=== PATIENT | male | born 1945 | race American Indian/Alaskan Native ===

== ENCOUNTER 2022-02-10 08:11 | Inpatient (IN) | payer MEDICARE ==
--- NOTE | 2022-02-10 08:41 | Emergency Department Report ---
Blank Doc - Documentation Documentation: 76-year-old male that presents with bilateral leg swelling, chest tightness and shortness of breath. 1- This is a initial triage assessment/medical screening only. Full assessment and work-up will be completed once the patient is in proper hospital gown, ED bed and in a private room setting. This initial assessment/diagnostic orders/clinical plan/ treatment(s) is/are subject to change based on pt's health status, clinical progression and re-assessment by fellow clinical providers in the ED. Further treatment and workup at subsequent clinical providers discretion. Patient/guardians urged not to elope from ED as their condition may be serious if not clinically assessed and managed. 2-cardiac work-up 3-EKG The patient was evaluated in the emergency department for symptoms described in the history of present illness. He/she was evaluated in the context of the [facility] COVID-19 pandemic, which necessitated consideration that the patient might be at risk for infection with the virus that causes COVID-19. Institutional protocols and algorithms that pertain to the evaluation of patients at risk for COVID-19 are in a state of rapid change based on information released by regulatory bodies including the CDC and federal and state organizations. These policies and algorithms were followed during the patient's care in the emergency department. Please note that these policies, procedures and recommendations changed on a rapid basis.
--- NOTE | 2022-02-10 09:15 | XRay Report ---
CHEST 2 VIEWS INDICATION / CLINICAL INFORMATION: Chest Pain. FINDINGS: SUPPORT DEVICES: None. HEART / MEDIASTINUM: No significant abnormality. LUNGS / PLEURA: No significant pulmonary or pleural abnormality. No pneumothorax. ADDITIONAL FINDINGS: No significant additional findings. IMPRESSION: 1. No acute findings. Signer Name: Derrick Elliott MD Signed: 02/10/2022 9:11 AM Workstation Name: [id number]
[2022-02-10 09:59] LABS: Basophils # (Auto) 0.1 K/mm3 (0.0-0.1); Basophils % (Auto) 0.8 % (0.0-1.8); Eosinophils # (Auto) 0.3 K/mm3 (0.0-0.4); Eosinophils % (Auto) 5.1 % (0.0-4.3); Hematocrit 39.8 % (35.5-45.6); Hemoglobin 13.3 gm/dl (11.8-15.2); Lymphocytes # (Auto) 0.8 K/mm3 (1.2-5.4); Lymphocytes % (Auto) 13.1 % (13.4-35.0); Mean Corpuscular HGB Conc 33 % (32-34); Mean Corpuscular Volume 88 fl (84-94); Monocytes # (Auto) 0.7 K/mm3 (0.0-0.8); Monocytes % (Auto) 11.3 % (0.0-7.3); Platelet Count 334 K/mm3 (140-440); Red Blood Count 4.51 M/mm3 (3.65-5.03); Red Cell Distribution Width 16.2 % (13.2-15.2)
[2022-02-10 10:13] LABS: Alanine Aminotransferase 19 units/L (7-56); Albumin 4.1 g/dL (3.9-5); BUN/Creatinine Ratio 16; Blood Urea Nitrogen 13 mg/dL (9-20); Calcium 9.5 mg/dL (8.4-10.2); Hemolysis Index 6
[2022-02-10 10:16] LABS: INR 1.1 (0.87-1.13); Partial Thromboplastin Time 33.7 Sec. (24.2-36.6)
[2022-02-10 10:24] LABS: Chol/HDL Ratio 2.97 %; HDL Cholesterol 44 mg/dL (40-59); LDL Cholesterol,Direct 83 mg/dL (50-130)
--- NOTE | 2022-02-10 12:46 | Emergency Department Report ---
ED General Adult HPI - General Chief complaint: Medical Clearance Stated complaint: My doctor sent me here to rule out congestive heart failure Time Seen by Provider: 02/10/22 08:37 Source: patient, RN notes reviewed Mode of arrival: Ambulatory Limitations: No Limitations - History of Present Illness Initial comments: The patient is a 76-year-old gentleman. He has a history of chronic lymphedema. He presents today with a complaint of "my doctor sent me here to get ruled out for congestive heart failure." The patient denies physical pain. He has chronic lower extremity swelling. He has chronic shortness of breath. He lives at home, and does not have assistance with home wound care for his chronic lower extremity edema. Denies headache, neck pain, chest pain, abdominal pain, hematemesis and bright red blood per rectum. He has chronic exertional shortness of breath, and chronic lower extremity swelling and lymphedema. -: Gradual, week(s), month(s) Location: left, right, lower extremity Consistency: constant Improves with: rest Worsens with: movement - Related Data Allergies Allergy/AdvReac Type Severity Reaction Status Date / Time No Known Allergies Allergy Unverified 12/27/13 10:41 ED Review of Systems ROS: Stated complaint: INFECTED LEGS Other details as noted in HPI Constitutional: denies: fever Eyes: denies: eye discharge ENT: denies: congestion Respiratory: shortness of breath, SOB with exertion, SOB at rest. denies: wheezing Cardiovascular: dyspnea on exertion, edema. denies: chest pain, palpitations Gastrointestinal: denies: hematemesis, melena Genitourinary: denies: dysuria Skin: lesions Neurological: denies: weakness Hematological/Lymphatic: denies: easy bleeding ED Past Medical Hx - Past Medical History Hx Hypertension: Yes Hx CVA: No Hx Congestive Heart Failure: No Hx Diabetes: Yes Hx Deep Vein Thrombosis: No Hx Arthritis: No Hx Seizures: No Hx Asthma: No - Social History Smoking Status: Never Smoker ED Physical Exam - General Limitations: No Limitations General appearance: alert, in no apparent distress, obese - Head Head exam: Present: atraumatic, normocephalic - Eye Eye exam: Present: normal appearance, EOMI. Absent: nystagmus - ENT ENT exam: Present: normal exam, normal orophraynx, mucous membranes moist, normal external ear exam - Neck Neck exam: Present: normal inspection, full ROM. Absent: tenderness, meningismus - Respiratory Respiratory exam: Present: decreased breath sounds. Absent: respiratory distress, wheezes, rales, rhonchi - Cardiovascular Cardiovascular Exam: Present: regular rate, irregular rhythm, normal heart sounds. Absent: normal rhythm, bradycardia, tachycardia, systolic murmur, diastolic murmur, rubs, gallop - GI/Abdominal GI/Abdominal exam: Present: soft. Absent: distended, tenderness, guarding, rebound, rigid, pulsatile mass - Rectal Rectal exam: Present: deferred - Extremities Exam Extremities exam: Present: full ROM, pedal edema, other (There is chronic bilateral lower extremity lymphedema, and there are chronic wounds. There is no pus, streaking or purulent discharge.). Absent: normal inspection - Back Exam Back exam: Present: normal inspection. Absent: tenderness, CVA tenderness (R), CVA tenderness (L), paraspinal tenderness, vertebral tenderness - Neurological Exam Neurological exam: Present: alert, other (No facial droop. Tongue midline. Extraocular movements intact bilaterally. Facial sensation intact to light touch in V1, V2, V3 distribution bilaterally. 5 and a 5 strength in 4 extremities. Sensation intact to light touch in 4 extremities.). Absent: motor sensory deficit - Psychiatric Psychiatric exam: Present: flat affect - Skin Skin exam: Present: warm, dry, intact, normal color. Absent: rash ED Course Vital Signs 02/10/22 08:20 Temperature 98.3 F Pulse Rate 60 Respiratory 18 Rate Blood Pressure 134/55 [Right] O2 Sat by Pulse 98 Oximetry ED Medical Decision Making - Lab Data Result diagrams: 02/10/22 09:23 02/10/22 09:23 Vital Signs 02/10/22 08:20 Temperature 98.3 F Pulse Rate 60 Respiratory 18 Rate Blood Pressure 134/55 [Right] O2 Sat by Pulse 98 Oximetry Lab Results 02/10/22 02/10/22 02/10/22 Range/Units 09:12 09:23 09:23 WBC 6.2 (4.5-11.0) K/mm3 RBC 4.51 (3.65-5.03) M/mm3 Hgb 13.3 (11.8-15.2) gm/dl Hct 39.8 (35.5-45.6) % MCV 88 (84-94) fl MCH 29 (28-32) pg MCHC 33 (32-34) % RDW 16.2 H (13.2-15.2) % Plt Count 334 (140-440) K/mm3 Lymph % (Auto) 13.1 L (13.4-35.0) % [place] % (Auto) 11.3 H (0.0-7.3) % Eos % (Auto) 5.1 H (0.0-4.3) % Baso % (Auto) 0.8 (0.0-1.8) % Lymph # (Auto) 0.8 L (1.2-5.4) K/mm3 [place] # (Auto) 0.7 (0.0-0.8) K/mm3 Eos # (Auto) 0.3 (0.0-0.4) K/mm3 Baso # (Auto) 0.1 (0.0-0.1) K/mm3 Seg Neutrophils % 69.7 (40.0-70.0) % Seg Neutrophils # 4.3 (1.8-7.7) K/mm3 PT 15.5 H (12.2-14.9) Sec. INR 1.10 (0.87-1.13) APTT 33.7 (24.2-36.6) Sec. Sodium 139 (137-145) mmol/L Potassium 4.1 (3.6-5.0) mmol/L Chloride 102.6 (98-107) mmol/L Carbon Dioxide 23 (22-30) mmol/L Anion Gap 18 mmol/L BUN 13 (9-20) mg/dL Creatinine 0.8 (0.8-1.3) mg/dL Estimated GFR > 60 ml/min BUN/Creatinine Ratio 16 % Glucose 110 H (75-100) mg/dL Calcium 9.5 (8.4-10.2) mg/dL Total Bilirubin 0.90 (0.1-1.2) mg/dL AST 25 (5-40) units/L ALT 19 (7-56) units/L Alkaline Phosphatase 156 H (35-129) units/L Troponin T 0.037 H (0.00-0.029) ng/mL NT-Pro-B Natriuret Pep 198.5 (0-900) pg/mL Total Protein 7.9 (6.3-8.2) g/dL Albumin 4.1 (3.9-5) g/dL Albumin/Globulin Ratio 1.1 % Triglycerides 48 (2-149) mg/dL Cholesterol 142 (50-199) mg/dL LDL Cholesterol Direct 83 (50-130) mg/dL HDL Cholesterol 44 (40-59) mg/dL Cholesterol/HDL Ratio 2.97 % - EKG Data -: EKG Interpreted by [place] - EKG Data 02/10/22 13:37 The EKG is limited by motion artifact. Atrial fibrillation, ventricular rate 60 to 70 bpm. Left axis deviation, left anterior fascicular block. Motion artifact is noted. Right bundle branch block is noted. This is an abnormal EKG. This is not a STEMI - Radiology Data Radiology results: pending, report reviewed, image reviewed CHEST 2 VIEWS INDICATION / CLINICAL INFORMATION: Chest Pain. FINDINGS: SUPPORT DEVICES: None. HEART / MEDIASTINUM: No significant abnormality. LUNGS / PLEURA: No significant pulmonary or pleural abnormality. No pneumothorax. ADDITIONAL FINDINGS: No significant additional findings. IMPRESSION: 1. No acute findings. Signer Name: Derrick Elliott MD Signed: 02/10/2022 8:11 AM Workstation Name: [id number] - Medical Decision Making Differential diagnosis, including but not limited to: Atrial fibrillation, congestive heart failure, pulmonary hypertension, chronic lymphedema Assessment and plan: 76-year-old gentleman with painless shortness of breath, found to be in A. fib, of unknown duration and chronicity, with chronic lower extremity edema and lymphedema, lower extremities do not appear to be superinfected, and elevated troponin, which is likely a type II troponin leak. Patient denies DVT/PE risk factors. He denies contraindications to systemic anticoagulation. Have recommended admission to the medical service. Patient is agreeable to this plan of care. I have removed the patient's wound dressings, and his wounds do not appear to be superinfected. Nursing team to redress lower extremity wounds, patient to receive Lovenox. [facility] physician, Dr. Amador to admit patient to the medical service. I discussed this plan of care with the patient, and he is agreeable Critical care attestation.: If time is entered above; I have spent that time in minutes in the direct care of this critically ill patient, excluding procedure time. ED Disposition Clinical Impression: Atrial fibrillation, Lymphedema, Shortness of breath, Elevated troponin Disposition: 09 ADMITTED INPATIENT Is pt being admited?: Yes Does the pt Need Aspirin: No Condition: Good
[2022-02-10] MEDS ORDERED: NITROGLYCERIN 0.4 MG TAB SUBL SL PRN (13:17)
[2022-02-10] MEDS ORDERED: ALBUTEROL 2.5 MG/3 ML NEBU IH PRN (13:17)
[2022-02-10] MEDS ORDERED: oxyCODONE /ACETAMINOPHEN 5-325MG TAB PO PRN (13:17)
[2022-02-10] MEDS ORDERED: HYDROmorphone 1 MG/1 ML INJ IV PRN (13:17)
[2022-02-10] MEDS ORDERED: ONDANSETRON 4 MG/2 ML INJ IV PRN (13:17)
[2022-02-10] MEDS ORDERED: ACETAMINOPHEN 325 MG TAB PO PRN ×2 (13:17→13:20)
--- NOTE | 2022-02-10 13:17 | History and Physical Report ---
History of Present Illness Chief complaint: I get tired really easily History of present illness: 76 YO Male with HTN, DM, Metabolic Syndrome, Obesity Hypoventilation, BLE Lymphedema, Debility presents to ED for evaluation. Patient reports "I get tired really easily". Patient states that he had experienced decreased exercise tolerance, dyspnea on exertion, dyspnea at rest, worsening lower extremity edema, over the past 1 month with persistent and worsening symptoms over the past 1 week. Patient acknowledges orthopnea, as well as paroxysmal nocturnal dyspnea. Patient also acknowledges a 10 pound weight gain in the past 1 week. Patient was seen and evaluated by his primary care physician and instructed to [place] further care. Patient transported to [facility] via private vehicle for further care and evaluation of the aforementioned symptoms. The patient was seen and evaluated in the emergency department. All lab and imaging studies reviewed. Patient found to have new onset atrial fibrillation with concomitant right bundle wang block, type II NSTEMI, as well as clinical symptoms consistent with new onset CHF. Patient also found to have bilateral lower extremity cellulitis with concomitant chronic bilateral lower extremity lymphedema. Patient admitted to telemetry and initiated on CHF protocol and treated with therapeutic anticoagulation in the emergency department. Cardiology team consulted. Patient denies fever, chills, chest pain, palpitations, productive cough, skin rash, recent ill contacts, or known exposure to COVID-19. No prior admission for review. No medication listed at time of admission has been reconciled. Advanced care planning conducted in ED. Past History Past Medical History: diabetes, hypertension, other (See HPI) Past Surgical History: No surgical history, Other (Reviewed) Social history: . denies: smoking, alcohol abuse, prescription drug abuse Family history: diabetes, hypertension Medications and Allergies Allergies Allergy/AdvReac Type Severity Reaction Status Date / Time No Known Allergies Allergy Unverified 12/27/13 10:41 Review of Systems Constitutional: weight gain, weakness, lethargy, no fever, no chills Ears, nose, mouth and throat: no ear pain, no ear discharge, no tinnitis, no decreased hearing, no nose pain, no nasal congestion Cardiovascular: orthopnea, shortness of breath, dyspnea on exertion, paroxysmal nocturnal dyspnea, leg edema, decreased exercise tolerance Respiratory: no cough, no cough with sputum, no excessive sputum, no hemoptysis Gastrointestinal: no nausea, no vomiting, no diarrhea, no constipation Genitourinary Male: no hematuria, no flank pain, no discharge, no urinary frequency, no urinary hesitancy Rectal: no pain, no incontinence, no bleeding Musculoskeletal: no neck stiffness, no neck pain, no shooting arm pain, no arm numbness/tingling, no low back pain Integumentary: darkening of skin, foot/leg ulcers, no rash, no pruritis, no redness, no sores, no wounds Neurological: no head injury, no transient paralysis, no paralysis, no numbness, no tingling, no tremors Psychiatric: no anxiety, no sleep disturbances, no insomnia, no hypersomnia, no change in libido Endocrine: no cold intolerance, no polyphagia, no excessive thirst, no polyuria, no nocturia Hematologic/Lymphatic: no easy bruising, no easy bleeding Allergic/Immunologic: no urticaria Exam - Constitutional Vitals: Temp Pulse Resp BP Pulse Ox 98.3 F 60 18 134/55 98 02/10/22 08:20 02/10/22 08:20 02/10/22 08:20 02/10/22 08:20 02/10/22 08:20 General appearance: Present: mild distress - EENT Eyes: Present: PERRL ENT: hearing intact, clear oral mucosa - Neck Neck: Present: supple, normal ROM - Respiratory Respiratory effort: normal Respiratory: bilateral: CTA - Cardiovascular Rhythm: irregularly irregular Heart Sounds: Present: S1 & S2. Absent: rub, click - Extremities Extremities: pulses symmetrical Extremity abnormal: edema, ulceration, deformity, tenderness Peripheral Pulses: within normal limits - Abdominal General gastrointestinal: Present: soft, non-tender, non-distended, normal bowel sounds Male genitourinary: Present: normal - Integumentary Integumentary: Present: clear, warm, dry - Musculoskeletal Musculoskeletal: generalized weakness - Psychiatric Psychiatric: appropriate mood/affect, intact judgment & insight - Neurologic Neurologic: CNII-XII intact, moves all extremities HEART Score - HEART Score Troponin: Troponin T 0.037 ng/mL (0.00-0.029) H 02/10/22 09:23 Results - Labs CBC & Chem 7: 02/10/22 09:23 02/10/22 09:23 Labs: Abnormal lab results 02/10/22 02/10/22 02/10/22 Range/Units 09:12 09:23 09:23 RDW 16.2 H (13.2-15.2) % Lymph % (Auto) 13.1 L (13.4-35.0) % [place] % (Auto) 11.3 H (0.0-7.3) % Eos % (Auto) 5.1 H (0.0-4.3) % Lymph # (Auto) 0.8 L (1.2-5.4) K/mm3 PT 15.5 H (12.2-14.9) Sec. Glucose 110 H (75-100) mg/dL Alkaline Phosphatase 156 H (35-129) units/L Troponin T 0.037 H (0.00-0.029) ng/mL Assessment and Plan - Patient Problems (1) Diastolic CHF Status: Acute Qualifiers: Heart failure chronicity: acute Qualified Code(s): I50.31 - Acute diastolic (congestive) heart failure Plan to address problem: CHF protocol: Strict I's/O, monitor urine output every shift, daily weight, afterload reduction, blood pressure control, thyroid panel, magnesium level, echocardiogram ordered and pending at time of admission, cardiology team consulted. (2) NSTEMI (non-ST elevated myocardial infarction) Status: Acute Plan to address problem: Type II NSTEMI: Chest pain protocol: Serial cardiac enzymes, EKG, telemetry monitoring, therapeutic anticoagulation initiated in the emergency department. (3) Right bundle branch block (RBBB) Status: Acute Plan to address problem: Telemetry monitoring, cardiology consulted, continue medical management, serial EKG. (4) Obesity hypoventilation syndrome Status: Acute Plan to address problem: Balanced diet, increase physical activity discharge, outpatient pulmonary follow-up for sleep study. (5) Lymphedema Status: Acute Plan to address problem: Wound care consulted, supportive care. (6) Bilateral lower leg cellulitis Status: Acute Plan to address problem: Empiric IV antibiotic therapy. Supportive care, wound care consulted. (7) Hypertension Status: Acute Qualifiers: Hypertension type: primary hypertension Qualified Code(s): I10 - Essential (primary) hypertension Plan to address problem: Monitor blood pressure every shift, continue medical management. (8) Diabetes Status: Acute Plan to address problem: Consistent carbohydrate diet, Accu-Chek, insulin protocol, hypoglycemia protocol. (9) DVT prophylaxis Status: Acute Plan to address problem: Supportive care, continue therapeutic anticoagulation. (10) Advance care planning Status: Acute Plan to address problem: Disease education conducted, care plan discussed, diagnoses discussed, prognosis discussed, patient is full code, patient acknowledges understanding and agreement with care plan, +30 minutes. (11) Preventative health care Status: Acute Plan to address problem: Patient counseled regarding balanced diet, increase physical activity discharge, wound care and dressing care, low carbohydrate diet, low-sodium diet. +30 minutes.
[2022-02-10] MEDS ORDERED: ENOXAPARIN 100 MG/1 ML INJ SUB-Q STA (13:18)
[2022-02-10] MEDS ORDERED: traMADol 50 MG TAB PO PRN (13:20)
[2022-02-10] MEDS ORDERED: ASPIRIN 81 MG TAB CHEW PO STA (13:20)
[2022-02-10] MEDS ORDERED: VANCOMYCIN/NS 1 GM/250 ML 1 GM/250 ML BAG IV ONE (18:23)
[2022-02-10] MEDS ORDERED: VANCOMYCIN PHARMACY TO DOSE IV SCH (19:00)
[2022-02-10] MEDS: VANCOMYCIN 1,250 MG in SODIUM CHLORIDE 0.9% 250ML 250 ML IV SCH (20:14)
[2022-02-11 07:28] LABS: BUN/Creatinine Ratio 15; Blood Urea Nitrogen 12 mg/dL (9-20); Calcium 8.5 mg/dL (8.4-10.2); Hemolysis Index 0
[2022-02-11] MEDS: VANCOMYCIN 1,250 MG in SODIUM CHLORIDE 0.9% 250ML 250 ML IV SCH ×2 (09:18→22:44)
--- NOTE | 2022-02-11 09:27 | Progress Note ---
Assessment and Plan Assessment and plan: (1) Diastolic CHF Status: Acute Qualifiers: Heart failure chronicity: acute Qualified Code(s): I50.31 - Acute diastolic (congestive) heart failure Plan to address problem: CHF protocol: Strict I's/O, monitor urine output every shift, daily weight, afterload reduction, blood pressure control, thyroid panel, magnesium level, echocardiogram ordered and pending at time of admission, cardiology team consulted. (2) NSTEMI (non-ST elevated myocardial infarction) Status: Acute Plan to address problem: Type II NSTEMI: Chest pain protocol: Serial cardiac enzymes, EKG, telemetry monitoring, therapeutic anticoagulation initiated in the emergency department. (3) Right bundle branch block (RBBB) Status: Acute Plan to address problem: Telemetry monitoring, cardiology consulted, continue medical management, serial EKG. (4) Obesity hypoventilation syndrome Status: Acute Plan to address problem: Balanced diet, increase physical activity discharge, outpatient pulmonary follow-up for sleep study. (5) Lymphedema Status: Acute Plan to address problem: Wound care consulted, supportive care. (6) Bilateral lower leg cellulitis Status: Acute Plan to address problem: Empiric IV antibiotic therapy. Supportive care, wound care consulted. (7) Hypertension Status: Acute Qualifiers: Hypertension type: primary hypertension Qualified Code(s): I10 - Essential (primary) hypertension Plan to address problem: Monitor blood pressure every shift, continue medical management. (8) Diabetes Status: Acute Plan to address problem: Consistent carbohydrate diet, Accu-Chek, insulin protocol, hypoglycemia protocol. (9) DVT prophylaxis Status: Acute Plan to address problem: Supportive care, continue therapeutic anticoagulation. (10) Advance care planning Status: Acute Plan to address problem: Disease education conducted, care plan discussed, diagnoses discussed, prognosis discussed, patient is full code, patient acknowledges understanding and agreement with care plan, +30 minutes. (11) Preventative health care Status: Acute Plan to address problem: Patient counseled regarding balanced diet, increase physical activity discharge, wound care and dressing care, low carbohydrate diet, low-sodium diet. +30 minutes. We will closely monitor the patient and adjust management as needed Plan of care reviewed with the patient and nurse History Interval history: I have seen and examined the patient at the bedside Patient's chart and medications reviewed Patient feels better no new complaints vital signs noted Hospitalist Physical - Constitutional Vitals: Temp Pulse Resp BP Pulse Ox 99.5 F 84 18 91/37 96 02/11/22 08:28 02/11/22 08:28 02/11/22 03:14 02/11/22 08:28 02/11/22 08:28 General appearance: Present: mild distress, well-nourished - EENT Eyes: Present: PERRL, EOM intact - Neck Neck: Present: supple, normal ROM - Respiratory Respiratory effort: normal Respiratory: bilateral: diminished, negative: rales, rhonchi, wheezing - Cardiovascular Rhythm: regular Heart Sounds: Present: S1 & S2 - Extremities Extremities: no ischemia, abnormal (Bilateral lymphedema) Extremity abnormal: other (Chronic infected wounds) - Abdominal General gastrointestinal: soft, non-tender, non-distended, normal bowel sounds - Integumentary Integumentary: Present: clear, warm - Psychiatric Psychiatric: appropriate mood/affect, cooperative - Neurologic Neurologic: CNII-XII intact, moves all extremities HEART Score - HEART Score Troponin: Troponin T 0.013 ng/mL (0.00-0.029) 02/11/22 00:04 Results - Labs CBC & Chem 7: 02/10/22 09:23 02/11/22 06:37 Labs: Laboratory Last Values WBC 6.2 K/mm3 (4.5-11.0) 02/10/22 09:23 RBC 4.51 M/mm3 (3.65-5.03) 02/10/22 09:23 Hgb 13.3 gm/dl (11.8-15.2) 02/10/22 09:23 Hct 39.8 % (35.5-45.6) 02/10/22 09:23 MCV 88 fl (84-94) 02/10/22 09:23 MCH 29 pg (28-32) 02/10/22 09:23 MCHC 33 % (32-34) 02/10/22 09:23 RDW 16.2 % (13.2-15.2) H 02/10/22 09:23 Plt Count 334 K/mm3 (140-440) 02/10/22 09:23 Lymph % (Auto) 13.1 % (13.4-35.0) L 02/10/22 09:23 [place] % (Auto) 11.3 % (0.0-7.3) H 02/10/22 09:23 Eos % (Auto) 5.1 % (0.0-4.3) H 02/10/22 09:23 Baso % (Auto) 0.8 % (0.0-1.8) 02/10/22 09:23 Lymph # (Auto) 0.8 K/mm3 (1.2-5.4) L 02/10/22 09:23 [place] # (Auto) 0.7 K/mm3 (0.0-0.8) 02/10/22 09:23 Eos # (Auto) 0.3 K/mm3 (0.0-0.4) 02/10/22 09:23 Baso # (Auto) 0.1 K/mm3 (0.0-0.1) 02/10/22 09:23 Seg Neutrophils % 69.7 % (40.0-70.0) 02/10/22 09: Seg Neutrophils # 4.3 K/mm3 (1.8-7.7) 02/10/22 09:23 PT 15.5 Sec. (12.2-14.9) H 02/10/22 09:12 INR 1.10 (0.87-1.13) 02/10/22 09:12 APTT 33.7 Sec. (24.2-36.6) 02/10/22 09:12 Sodium 141 mmol/L (137-145) 02/11/22 06:37 Potassium 3.9 mmol/L (3.6-5.0) 02/11/22 06:37 Chloride 107.2 mmol/L (98-107) H 02/11/22 06:37 Carbon Dioxide 23 mmol/L (22-30) 02/11/22 06:37 Anion Gap 15 mmol/L 02/11/22 06:37 BUN 12 mg/dL (9-20) 02/11/22 06:37 Creatinine 0.8 mg/dL (0.8-1.3) 02/11/22 06:37 Estimated GFR > 60 ml/min 02/11/22 06:37 BUN/Creatinine Ratio 15 % 02/11/22 06:37 Glucose 99 mg/dL (75-100) 02/11/22 06:37 POC Glucose 84 mg/dL (70-105) 02/10/22 21:27 Calcium 8.5 mg/dL (8.4-10.2) 02/11/22 06:37 Magnesium 2.30 mg/dL (1.7-2.3) 02/10/22 13:23 Total Bilirubin 0.90 mg/dL (0.1-1.2) 02/10/22 09:23 AST 25 units/L (5-40) 02/10/22 09:23 ALT 19 units/L (7-56) 02/10/22 09:23 Alkaline Phosphatase 156 units/L (35-129) H 02/10/22 09:23 Troponin T 0.013 ng/mL (0.00-0.029) 02/11/22 00:04 NT-Pro-B Natriuret Pep 198.5 pg/mL (0-900) 02/10/22 09:23 Total Protein 7.9 g/dL (6.3-8.2) 02/10/22 09:23 Albumin 4.1 g/dL (3.9-5) 02/10/22 09:23 Albumin/Globulin Ratio 1.1 % 02/10/22 09:23 Triglycerides 48 mg/dL (2-149) 02/10/22 09:23 Cholesterol 142 mg/dL (50-199) 02/10/22 09:23 LDL Cholesterol Direct 83 mg/dL (50-130) 02/10/22 09:23 HDL Cholesterol 44 mg/dL (40-59) 02/10/22 09:23 Cholesterol/HDL Ratio 2.97 % 02/10/22 09:23 TSH 2.660 mlU/mL (0.270-4.200) 02/10/22 13:23 Arias/IV: Voiding Method Urinal Active Medications - Current Medications Current Medications: Generic Name Dose Route Start Last Admin Trade Name Freq PRN Reason Stop Dose Admin Acetaminophen 650 mg 02/10/22 13:17 Acetaminophen 325 Mg Tab PO Q4H PRN Pain MILD(1-3)/Fever >100.5/RASMUSSEN Albuterol 2.5 mg 02/10/22 13:17 Albuterol 2.5 Mg/3 Ml Nebu IH Q4HRT PRN Shortness Of Breath Hydromorphone HCl 0.5 mg 02/10/22 13:17 Hydromorphone 1 Mg/1 Ml Inj IV Q13H PRN Pain , Severe (7-10) Vancomycin HCl 1,250 mg/ 275 mls @ 137.5 mls/hr 02/10/22 20:00 02/11/22 09:18 Sodium Chloride IV 137.5 mls/hr Q12H TAMI Administration Nitroglycerin 0.4 mg 02/10/22 13:17 Nitroglycerin 0.4 Mg Tab Subl SL .Q5MIN PRN Chest Pain Ondansetron HCl 4 mg 02/10/22 13:17 02/10/22 13:56 Ondansetron 4 Mg/2 Ml Inj IV 4 mg Q8H PRN Administration Nausea And Vomiting Sodium Chloride 10 ml 02/10/22 22:00 02/11/22 09:18 Sodium Chloride 0.9% 10 Ml Flush Syringe IV 10 ml BID TAMI Administration Sodium Chloride 10 ml 02/10/22 13:17 Sodium Chloride 0.9% 10 Ml Flush Syringe IV PRN PRN LINE FLUSH Sodium Chloride 10 ml 02/10/22 13:20 Sodium Chloride 0.9% 10 Ml Flush Syringe IV PRN PRN LINE FLUSH Tramadol HCl 50 mg 02/10/22 13:20 Tramadol 50 Mg Tab PO Q6H PRN Pain, Moderate (4-6)
--- NOTE | 2022-02-11 13:44 | Electrocardiograph Report ---
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
--- NOTE | 2022-02-11 13:45 | Electrocardiograph Report ---
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
--- NOTE | 2022-02-11 14:18 | Consultation ---
History of Present Illness Consult date: 02/11/22 Requesting physician: MALI GAINES Consult reason: atrial fibrillation, elevated troponin History of present illness: Patient 76-year-old male with a past medical history of chronic lymphedema, diabetes is and hypertension who presented to the ED yesterday with a complaint that he was sent here for treatment regarding his legs. Patient states that he has chronic lymphedema and that he was sent to the ED to be seen for IV treatment for about 3 hours and states he is supposed to go home after. Patient denies any cardiac complaints including chest pain, nausea, vomiting, orthopnea, dyspnea on exertion. Patient is previously unknown to our practice. Cardiology is consulted for A. fib and elevated troponin Past History Past Medical History: diabetes, hypertension, other (See HPI) Past Surgical History: No surgical history, Other (Reviewed) Social history: . denies: smoking, alcohol abuse, prescription drug abuse Family history: diabetes, hypertension Medications and Allergies Allergies Allergy/AdvReac Type Severity Reaction Status Date / Time No Known Allergies Allergy Unverified 12/27/13 10:41 Active Meds: Active Medications Acetaminophen (Acetaminophen 325 Mg Tab) 650 mg PO Q4H PRN PRN Reason: Pain MILD(1-3)/Fever >100.5/RASMUSSEN Albuterol (Albuterol 2.5 Mg/3 Ml Nebu) 2.5 mg IH Q4HRT PRN PRN Reason: Shortness Of Breath Hydromorphone HCl (Hydromorphone 1 Mg/1 Ml Inj) 0.5 mg IV Q13H PRN PRN Reason: Pain , Severe (7-10) Vancomycin HCl 1,250 mg/ (Sodium Chloride) 275 mls @ 137.5 mls/hr IV Q12H TAMI Last Admin: 02/11/22 09:18 Dose: 137.5 mls/hr Cefepime HCl (Cefepime/Ns 2 Gm/100 Ml) 2 gm in 100 mls @ 200 mls/hr IV Q8H TAMI; Protocol Nitroglycerin (Nitroglycerin 0.4 Mg Tab Subl) 0.4 mg SL .Q5MIN PRN PRN Reason: Chest Pain Ondansetron HCl (Ondansetron 4 Mg/2 Ml Inj) 4 mg IV Q8H PRN PRN Reason: Nausea And Vomiting Last Admin: 05/01/22 13:56 Dose: 4 mg Sodium Chloride (Sodium Chloride 0.9% 10 Ml Flush Syringe) 10 ml IV BID TAMI Last Admin: 02/11/22 09:18 Dose: 10 ml Sodium Chloride (Sodium Chloride 0.9% 10 Ml Flush Syringe) 10 ml IV PRN PRN PRN Reason: LINE FLUSH Tramadol HCl (Tramadol 50 Mg Tab) 50 mg PO Q6H PRN PRN Reason: Pain, Moderate (4-6) Review of Systems All systems: negative Physical Examination Vital Signs Temp Pulse Resp BP Pulse Ox 98.3 F 60 18 134/55 98 02/10/22 08:20 02/10/22 08:20 02/10/22 08:20 02/10/22 08:20 02/10/22 08:20 General appearance: no acute distress HEENT: Positive: Normocephaly Neck: Positive: trachea midline Cardiac: Positive: Reg Rate and Rhythm Lungs: Positive: Normal Breath Sounds Neuro: Positive: Grossly Intact Abdomen: Positive: Soft Skin: Positive: Other (Chronic changes on bilateral lower extremity) Extremities: Present: edema, Other (Chronic changes) Results 02/10/22 09:23 02/11/22 06:37 Comprehensive Metabolic Panel 02/11/22 Range/Units 06:37 Sodium 141 (137-145) mmol/L Potassium 3.9 (3.6-5.0) mmol/L Chloride 107.2 H (98-107) mmol/L Carbon Dioxide 23 (22-30) mmol/L BUN 12 (9-20) mg/dL Creatinine 0.8 (0.8-1.3) mg/dL Glucose 99 (75-100) mg/dL Calcium 8.5 (8.4-10.2) mg/dL - Imaging and Cardiology Echo: report reviewed EKG interpretations - Telemetry EKG Rhythm: Sinus Rhythm - EKG Sinus rhythms and dysrhythmias: sinus rhythm AV and intraventricular conduction: right bundle branch block Chamber hypertrophy or enlargement: left ventricular hypertro Assessment and Plan Patient 76-year-old male with a past medical history of chronic lymphedema and hypertension who presented to the ED yesterday with a complaint that he was sent here for treatment regarding his legs Cellulitis Chronic lymphedema Hypertension Diabetes Echo 02/10/2022-EF 50 to 55%. Mild LVH. Right ventricular systolic function is normal. Left atrium mildly dilated. Right atrium dilated Plan: EKG on admission very poor quality and indeterminate rhythm Repeat EKG from this a.m. sinus rhythm 73 with RBBB and LVH no acute ischemic changes. Patient denies any complaints of chest pain or shortness of breath Troponin leakage and down trended 0.03->0.019->0.013 likely related to infection regarding lower extremity BNP negative and CXR shows no acute findings. Patient has no complaints of shortness of breath. Patient does not appear to be clinically heart failure Echo results noted above Telemetry reviewed and patient has not had any episodes of A. fib. Patient currently sinus rhythm. No indication for anticoagulation Patient has edema bilateral lower extremity however patient has history of chronic lymphedema Primary team may wish to consider vascular consult for lymphedema Recommend outpatient stress test Cardiac status otherwise stable. Will see as needed Patient to follow-up with her primary care provider 1 to 2 weeks after discharge Patient in conjunction with Dr. Reeder who agrees with this plan of care - Patient Problems (1) Bilateral lower leg cellulitis Current Visit: No Status: Acute (2) Diabetes Current Visit: No Status: Acute (3) Hypertension Current Visit: No Status: Acute Qualifiers: Hypertension type: primary hypertension Qualified Code(s): I10 - Essential (primary) hypertension (4) Lymphedema Current Visit: No Status: Acute
[2022-02-11] MEDS: CEFEPIME/NS 2 GM/100 ML 2 GM/100 ML BAG IV SCH ×2 (14:19→22:10)
[2022-02-12] MEDS: CEFEPIME/NS 2 GM/100 ML 2 GM/100 ML BAG IV SCH ×3 (05:24→21:46)
[2022-02-12] MEDS: VANCOMYCIN 1,250 MG in SODIUM CHLORIDE 0.9% 250ML 250 ML IV SCH ×2 (09:28→20:32)
--- NOTE | 2022-02-12 10:20 | Electrocardiograph Report ---
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1945 Requested By: KATHY HERNANDEZ Order Number: [id number] Reading MD: Nathaniel Reeder Measurements Intervals [place] Rate: 73 P: 36 ID: [id number] QRS: -68 QRSD: 159 T: 76 QT: 429 QTc: 526 Interpretive Statements Sinus rhythm Sinus pause Borderline prolonged ID interval Probable left atrial enlargement Right bundle branch block Left ventricular hypertrophy Inferior infarct, old Compared to ECG 02/10/2022 13:01:16 Sinus pause or arrest now present Left ventricular hypertrophy now present Atrial fibrillation no longer present Myocardial infarct finding still present Electronically Signed On 02-12-2022 10:20:12 EDT by Nathaniel Reeder
--- NOTE | 2022-02-12 19:57 | Progress Note ---
Assessment and Plan Assessment and plan: --Diastolic CHF CHF protocol: Strict I's/O, monitor urine output every shift, daily weight, afterload reduction, blood pressure control, thyroid panel, magnesium level, echocardiogram ordered and pending at time of admission, cardiology team consulted. --NSTEMI (non-ST elevated myocardial infarction) Type II NSTEMI: Chest pain protocol: Serial cardiac enzymes, EKG, telemetry monitoring, therapeutic anticoagulation initiated in the emergency department. --Right bundle branch block (RBBB) Telemetry monitoring, cardiology consulted, continue medical management, serial EKG. --Obesity hypoventilation syndrome Balanced diet, increase physical activity discharge, outpatient pulmonary follow-up for sleep study. --Lymphedema Wound care consulted, supportive care. --Bilateral lower leg cellulitis Empiric IV antibiotic therapy. Supportive care, wound care consulted. --Hypertension Monitor blood pressure every shift, continue medical management. --Diabetes Consistent carbohydrate diet, Accu-Chek, insulin protocol, hypoglycemia protocol. --DVT prophylaxis Supportive care, continue therapeutic anticoagulation. -- Advance care planning Disease education conducted, care plan discussed, diagnoses discussed, prognosis discussed, patient is full code, patient acknowledges understanding and agreement with care plan, +30 minutes. --Preventative health care Patient counseled regarding balanced diet, increase physical activity discharge, wound care and dressing care, low carbohydrate diet, low-sodium diet. +30 minutes. We will closely monitor the patient and adjust management as needed Plan of care reviewed with the patient and nurse Nurse to monitor the patient and adjust management as needed Wound care, wound care surgeon evaluation if needed DC planning per case management History Interval history: I have seen and examined the patient at the bedside Patient's chart and medications reviewed Patient feels slightly better Denies chest pain or shortness of breath Afebrile vital signs noted Patient is anxious to go home Hospitalist Physical - Constitutional Vitals: Temp Pulse Resp BP Pulse Ox 98.3 F 93 H 20 113/46 100 02/12/22 15:30 02/12/22 16:16 02/12/22 08:13 02/12/22 15:30 02/12/22 15:30 General appearance: Present: mild distress, well-nourished - EENT Eyes: Present: PERRL, EOM intact - Neck Neck: Present: supple, normal ROM - Respiratory Respiratory effort: normal Respiratory: bilateral: diminished, negative: rales, rhonchi, wheezing - Cardiovascular Rhythm: regular Heart Sounds: Present: S1 & S2 - Extremities Extremities: no ischemia, No edema - Abdominal General gastrointestinal: soft, non-tender, non-distended, normal bowel sounds - Integumentary Integumentary: Present: clear, warm - Psychiatric Psychiatric: appropriate mood/affect, cooperative - Neurologic Neurologic: CNII-XII intact, moves all extremities HEART Score - HEART Score Troponin: Troponin T 0.013 ng/mL (0.00-0.029) 02/11/22 00:04 Results - Labs CBC & Chem 7: 02/10/22 09:23 02/11/22 06:37 Labs: Laboratory Last Values WBC 6.2 K/mm3 (4.5-11.0) 02/10/22 09: RBC 4.51 M/mm3 (3.65-5.03) 02/10/22 09:23 Hgb 13.3 gm/dl (11.8-15.2) 02/10/22 09: Hct 39.8 % (35.5-45.6) 02/10/22 09:23 MCV 88 fl (84-94) 02/10/22 09:23 MCH 29 pg (28-32) 02/10/22 09: MCHC 33 % (32-34) 02/10/22 09:23 RDW 16.2 % (13.2-15.2) H 02/10/22 09:23 Plt Count 334 K/mm3 (140-440) 02/10/22 09:23 Lymph % (Auto) 13.1 % (13.4-35.0) L 02/10/22 09:23 [place] % (Auto) 11.3 % (0.0-7.3) H 02/10/22 09:23 Eos % (Auto) 5.1 % (0.0-4.3) H 02/10/22 09:23 Baso % (Auto) 0.8 % (0.0-1.8) 02/10/22 09:23 Lymph # (Auto) 0.8 K/mm3 (1.2-5.4) L 02/10/22 09: [place] # (Auto) 0.7 K/mm3 (0.0-0.8) 02/10/22 09:23 Eos # (Auto) 0.3 K/mm3 (0.0-0.4) 02/10/22 09:23 Baso # (Auto) 0.1 K/mm3 (0.0-0.1) 02/10/22 09:23 Seg Neutrophils % 69.7 % (40.0-70.0) 02/10/22 09:23 Seg Neutrophils # 4.3 K/mm3 (1.8-7.7) 02/10/22 09:23 PT 15.5 Sec. (12.2-14.9) H 02/10/22 09:12 INR 1.10 (0.87-1.13) 02/10/22 09:12 APTT 33.7 Sec. (24.2-36.6) 02/10/22 09:12 Sodium 141 mmol/L (137-145) 02/11/22 06:37 Potassium 3.9 mmol/L (3.6-5.0) 02/11/22 06:37 Chloride 107.2 mmol/L (98-107) H 02/11/22 06:37 Carbon Dioxide 23 mmol/L (22-30) 02/11/22 06:37 Anion Gap 15 mmol/L 02/11/22 06:37 BUN 12 mg/dL (9-20) 02/11/22 06:37 Creatinine 0.8 mg/dL (0.8-1.3) 02/11/22 06:37 Estimated GFR > 60 ml/min 02/11/22 06:37 BUN/Creatinine Ratio 15 % 02/11/22 06:37 Glucose 99 mg/dL (75-100) 02/11/22 06:37 POC Glucose 84 mg/dL (70-105) 02/10/22 21:27 Calcium 8.5 mg/dL (8.4-10.2) 02/11/22 06:37 Magnesium 2.30 mg/dL (1.7-2.3) 02/10/22 13:23 Total Bilirubin 0.90 mg/dL (0.1-1.2) 02/10/22 09:23 AST 25 units/L (5-40) 02/10/22 09:23 ALT 19 units/L (7-56) 02/10/22 09:23 Alkaline Phosphatase 156 units/L (35-129) H 02/10/22 09:23 Troponin T 0.013 ng/mL (0.00-0.029) 02/11/22 00:04 NT-Pro-B Natriuret Pep 198.5 pg/mL (0-900) 02/10/22 09:23 Total Protein 7.9 g/dL (6.3-8.2) 02/10/22 09:23 Albumin 4.1 g/dL (3.9-5) 02/10/22 09:23 Albumin/Globulin Ratio 1.1 % 02/10/22 09:23 Triglycerides 48 mg/dL (2-149) 02/10/22 09: Cholesterol 142 mg/dL (50-199) 02/10/22 09: LDL Cholesterol Direct 83 mg/dL (50-130) 02/10/22 09:23 HDL Cholesterol 44 mg/dL (40-59) 02/10/22 09:23 Cholesterol/HDL Ratio 2.97 % 02/10/22 09:23 TSH 2.660 mlU/mL (0.270-4.200) 02/10/22 13:23 Arias/IV: Voiding Method Urinal Active Medications - Current Medications Current Medications: Generic Name Dose Route Start Last Admin Trade Name Freq PRN Reason Stop Dose Admin Acetaminophen 650 mg 02/10/22 13:17 Acetaminophen 325 Mg Tab PO Q4H PRN Pain MILD(1-3)/Fever >100.5/RASMUSSEN Albuterol 2.5 mg 02/10/22 13:17 Albuterol 2.5 Mg/3 Ml Nebu IH Q4HRT PRN Shortness Of Breath Hydromorphone HCl 0.5 mg 02/10/22 13:17 Hydromorphone 1 Mg/1 Ml Inj IV Q13H PRN Pain , Severe (7-10) Vancomycin HCl 1,250 mg/ 275 mls @ 137.5 mls/hr 02/10/22 20:00 02/12/22 09:28 Sodium Chloride IV 137.5 mls/hr Q12H TAMI Administration Cefepime HCl 2 gm in 100 mls @ 200 mls/hr 02/11/22 13:00 02/12/22 14:19 Cefepime/Ns 2 Gm/100 Ml IV 200 mls/hr Q8H TAMI Administration Protocol Nitroglycerin 0.4 mg 02/10/22 13:17 Nitroglycerin 0.4 Mg Tab Subl SL .Q5MIN PRN Chest Pain Ondansetron HCl 4 mg 02/10/22 13:17 02/10/22 13:56 Ondansetron 4 Mg/2 Ml Inj IV 4 mg Q8H PRN Administration Nausea And Vomiting Sodium Chloride 10 ml 02/10/22 22:00 02/12/22 09:29 Sodium Chloride 0.9% 10 Ml Flush Syringe IV 10 ml BID TAMI Administration Sodium Chloride 10 ml 02/10/22 13:17 Sodium Chloride 0.9% 10 Ml Flush Syringe IV PRN PRN LINE FLUSH Tramadol HCl 50 mg 02/10/22 13:20 Tramadol 50 Mg Tab PO Q6H PRN Pain, Moderate (4-6)
[2022-02-13] MEDS: CEFEPIME/NS 2 GM/100 ML 2 GM/100 ML BAG IV SCH ×3 (05:36→22:06)
[2022-02-13] MEDS: VANCOMYCIN 1,250 MG in SODIUM CHLORIDE 0.9% 250ML 250 ML IV SCH ×2 (09:25→20:26)
[2022-02-14] MEDS: CEFEPIME/NS 2 GM/100 ML 2 GM/100 ML BAG IV SCH ×3 (05:30→22:39)
[2022-02-14 06:07] LABS: Basophils % (Auto) 0.7 % (0.0-1.8); Eosinophils # (Auto) 0.4 K/mm3 (0.0-0.4); Eosinophils % (Auto) 6.2 % (0.0-4.3); Hematocrit 33.6 % (35.5-45.6); Hemoglobin 11.2 gm/dl (11.8-15.2); Lymphocytes # (Auto) 0.9 K/mm3 (1.2-5.4); Lymphocytes % (Auto) 13.7 % (13.4-35.0); Mean Corpuscular HGB Conc 33 % (32-34); Mean Corpuscular Volume 89 fl (84-94); Monocytes # (Auto) 0.9 K/mm3 (0.0-0.8); Monocytes % (Auto) 13.7 % (0.0-7.3); Platelet Count 282 K/mm3 (140-440); Red Blood Count 3.77 M/mm3 (3.65-5.03); Red Cell Distribution Width 16.5 % (13.2-15.2)
[2022-02-14 06:39] LABS: Alanine Aminotransferase 16 units/L (7-56); Albumin 3.1 g/dL (3.9-5); BUN/Creatinine Ratio 14; Blood Urea Nitrogen 11 mg/dL (9-20); Calcium 8.8 mg/dL (8.4-10.2); Hemolysis Index 9
--- NOTE | 2022-02-14 07:34 | Consultation ---
History of Present Illness Consult date: 02/14/22 - History of present illness History of present illness: The patient is a 76-year-old gentleman. He has a history of chronic lymphedema. He presents today with a complaint of "my doctor sent me here to get ruled out for congestive heart failure." The patient denies physical pain. He has chronic lower extremity swelling. He has chronic shortness of breath. He lives at home, and does not have assistance with home wound care for his chronic lower extremity edema. Denies headache, neck pain, chest pain, abdominal pain, hematemesis and bright red blood per rectum. He has chronic exertional shortness of breath, and chronic lower extremity swelling and lymphedema. Past History Past Medical History: diabetes, hypertension, other (See HPI) Past Surgical History: No surgical history, Other (Reviewed) Social history: . denies: smoking, alcohol abuse, prescription drug abuse Family history: diabetes, hypertension Medications and Allergies Allergies Allergy/AdvReac Type Severity Reaction Status Date / Time No Known Allergies Allergy Verified 02/13/22 08:33 Home Medications Medication Instructions Recorded Confirmed Last Taken Type No Known Home Medications [No 02/13/22 02/13/22 Unknown History Reported Home Medications] Active Meds: Active Medications Acetaminophen (Acetaminophen 325 Mg Tab) 650 mg PO Q4H PRN PRN Reason: Pain MILD(1-3)/Fever >100.5/RASMUSSEN Albuterol (Albuterol 2.5 Mg/3 Ml Nebu) 2.5 mg IH Q4HRT PRN PRN Reason: Shortness Of Breath Hydromorphone HCl (Hydromorphone 1 Mg/1 Ml Inj) 0.5 mg IV Q13H PRN PRN Reason: Pain , Severe (7-10) Vancomycin HCl 1,250 mg/ (Sodium Chloride) 275 mls @ 137.5 mls/hr IV Q12H TAMI Stop: 02/14/22 21:59 Last Admin: 02/13/22 20:26 Dose: 137.5 mls/hr Cefepime HCl (Cefepime/Ns 2 Gm/100 Ml) 2 gm in 100 mls @ 200 mls/hr IV Q8H TAMI; Protocol Stop: 02/16/22 05:29 Last Admin: 02/14/22 05:30 Dose: 200 mls/hr Nitroglycerin (Nitroglycerin 0.4 Mg Tab Subl) 0.4 mg SL .Q5MIN PRN PRN Reason: Chest Pain Ondansetron HCl (Ondansetron 4 Mg/2 Ml Inj) 4 mg IV Q8H PRN PRN Reason: Nausea And Vomiting Last Admin: 02/10/22 13:56 Dose: 4 mg Sodium Chloride (Sodium Chloride 0.9% 10 Ml Flush Syringe) 10 ml IV BID TAMI Last Admin: 02/13/22 22:04 Dose: 10 ml Sodium Chloride (Sodium Chloride 0.9% 10 Ml Flush Syringe) 10 ml IV PRN PRN PRN Reason: LINE FLUSH Tramadol HCl (Tramadol 50 Mg Tab) 50 mg PO Q6H PRN PRN Reason: Pain, Moderate (4-6) Exam Vital Signs Temp Pulse Resp BP Pulse Ox 98.3 F 60 18 134/55 98 02/10/22 08:20 02/10/22 08:20 02/10/22 08:20 02/10/22 08:20 02/10/22 08:20 - General physical appearance Positive: well developed, no distress, no pain - Neck Positive: no masses, no bruits, trachea midline - Respiratory Positive: normal expansion - Cardiovascular Rhythm: regular - Extremities Extremity abnormal: edema (Bilateral severe lymphedema noted with chronic skin changes several open ulcers are noted anteriorly and posteriorly on both extremities.) - Abdomen Abdomen: Present: soft. Absent: tender, masses, rebound - Integumentary other (Marked skin thickening secondary to chronic lymphedema open areas also noted as above) - Neurologic Neurologic: alert and oriented to time, place and person, motor strength and sensation are grossly intact, CN II-XII intact Results - Labs 02/14/22 05:46 02/14/22 05:46 Abnormal lab results 02/14/22 02/14/22 Range/Units 05:46 05:46 Hgb 11.2 L (11.8-15.2) gm/dl Hct 33.6 L (35.5-45.6) % RDW 16.5 H (13.2-15.2) % [place] % (Auto) 13.7 H (0.0-7.3) % Eos % (Auto) 6.2 H (0.0-4.3) % Lymph # (Auto) 0.9 L (1.2-5.4) K/mm3 [place] # (Auto) 0.9 H (0.0-0.8) K/mm3 Total Protein 6.0 L D (6.3-8.2) g/dL Albumin 3.1 L (3.9-5) g/dL Diabetes panel 02/14/22 Range/Units 05:46 Sodium 141 (137-145) mmol/L Potassium 4.1 (3.6-5.0) mmol/L Chloride 106.3 (98-107) mmol/L Carbon Dioxide 24 (22-30) mmol/L BUN 11 (9-20) mg/dL Creatinine 0.8 (0.8-1.3) mg/dL Glucose 93 (75-100) mg/dL Calcium 8.8 (8.4-10.2) mg/dL AST 18 (5-40) units/L ALT 16 (7-56) units/L Alkaline Phosphatase 128 (35-129) units/L Total Protein 6.0 L D (6.3-8.2) g/dL Albumin 3.1 L (3.9-5) g/dL Calcium panel 02/14/22 Range/Units 05:46 Calcium 8.8 (8.4-10.2) mg/dL Albumin 3.1 L (3.9-5) g/dL Pituitary panel 02/14/22 Range/Units 05:46 Sodium 141 (137-145) mmol/L Potassium 4.1 (3.6-5.0) mmol/L Chloride 106.3 (98-107) mmol/L Carbon Dioxide 24 (22-30) mmol/L BUN 11 (9-20) mg/dL Creatinine 0.8 (0.8-1.3) mg/dL Glucose 93 (75-100) mg/dL Calcium 8.8 (8.4-10.2) mg/dL Adrenal panel 02/14/22 Range/Units 05:46 Sodium 141 (137-145) mmol/L Potassium 4.1 (3.6-5.0) mmol/L Chloride 106.3 (98-107) mmol/L Carbon Dioxide 24 (22-30) mmol/L BUN 11 (9-20) mg/dL Creatinine 0.8 (0.8-1.3) mg/dL Glucose 93 (75-100) mg/dL Calcium 8.8 (8.4-10.2) mg/dL Total Bilirubin 0.70 (0.1-1.2) mg/dL AST 18 (5-40) units/L ALT 16 (7-56) units/L Alkaline Phosphatase 128 (35-129) units/L Total Protein 6.0 L D (6.3-8.2) g/dL Albumin 3.1 L (3.9-5) g/dL Assessment and Plan The patient is a 76-year-old gentleman. He has a history of chronic lymphedema. He presents today with a complaint of "my doctor sent me here to get ruled out for congestive heart failure." The patient denies physical pain. He has chronic lower extremity swelling. He has chronic shortness of breath. He lives at home, and does not have assistance with home wound care for his chronic lower extremity edema. Denies headache, neck pain, chest pain, abdominal pain, hematemesis and bright red blood per rectum. He has chronic exertional shortness of breath, and chronic lower extremity swelling and lymphedema. Keep leg elevated begin local wound care consider physical therapy consultation for lymphedema. Skin changes are advanced patient may need a biopsy to rule out a liposarcoma we will continue to follow patient with you.
--- NOTE | 2022-02-14 09:10 | Progress Note ---
Assessment and Plan Assessment and plan: --No evidence of congestive heart failure ; On echo LVEF is within normal limits, no fluid overload, proBNP within normal range No evidence of congestion on chest x-ray, patient does not have respiratory distress or shortness of breath Or any cardiac symptoms. Congestive heart failure ruled out -- Non-ST elevation PA: Due to troponine leak due to cellulitis Insignificant, troponin levels trended down --Right bundle branch block (RBBB) Telemetry monitoring, cardiology evaluated medical managem, --Obesity hypoventilation syndrome Balanced diet, increase physical activity discharge, outpatient pulmonary follow-up for sleep study. -- Bilateral lower extremity chronic lymphedema Wound care, elevate the limb supportive care. --Bilateral lower leg cellulitis and chronic ulcers Empiric IV antibiotic therapy. Supportive care, wound care consulted. Surgery evaluation noted and appreciated --Hypertension Monitor blood pressure every shift, continue medical management. --Diabetes melitis Consistent carbohydrate diet, Accu-Chek, insulin protocol, hypoglycemia protocol. --DVT prophylaxis Supportive care, continue therapeutic anticoagulation. -- Advance care planning Disease education conducted, care plan discussed, diagnoses discussed, prognosis discussed, patient is full code, patient acknowledges understanding and agreement with care plan, +30 minutes. --Preventative health care Patient counseled regarding balanced diet, increase physical activity discharge, wound care and dressing care, low carbohydrate diet, low-sodium diet. +30 minutes. We will closely monitor the patient and adjust management as needed Plan of care reviewed with the patient and nurse Nurse to monitor the patient and adjust management as needed Wound care, wound care surgeon evaluation if needed DC planning per case management 02/14/2022; wound cultures positive for gram-negative rods Follow culture sensitivities and adjust antibiotics as needed ID consult if indicated History Interval history: Seen and examined the patient at the bedside Patient's chart and medications reviewed Patient feels slightly better Surgery evaluation recommendations noted and appreciated Patient morbidly obese, not in acute distress Vital signs reviewed Hospitalist Physical - Constitutional Vitals: Temp Pulse Resp BP Pulse Ox 98.3 F 87 18 114/67 97 02/14/22 08:06 02/14/22 08:06 02/14/22 08:06 02/14/22 08:06 02/14/22 08:06 General appearance: Present: mild distress, well-nourished - EENT Eyes: Present: PERRL, EOM intact ENT: hearing intact, clear oral mucosa - Neck Neck: Present: supple, normal ROM - Respiratory Respiratory effort: normal Respiratory: bilateral: diminished, negative: rales, rhonchi, wheezing - Cardiovascular Rhythm: regular Heart Sounds: Present: S1 & S2 - Extremities Extremities: no ischemia, No edema - Abdominal General gastrointestinal: soft, non-tender, non-distended, normal bowel sounds - Integumentary Integumentary: Present: clear, warm - Psychiatric Psychiatric: appropriate mood/affect, cooperative - Neurologic Neurologic: moves all extremities HEART Score - HEART Score Troponin: Troponin T 0.013 ng/mL (0.00-0.029) 02/11/22 00:04 Results - Labs CBC & Chem 7: 02/14/22 05:46 02/14/22 05:46 Labs: Laboratory Last Values WBC 6.6 K/mm3 (4.5-11.0) 02/14/22 05:46 RBC 3.77 M/mm3 (3.65-5.03) 02/14/22 05:46 Hgb 11.2 gm/dl (11.8-15.2) L 02/14/22 05:46 Hct 33.6 % (35.5-45.6) L 02/14/22 05:46 MCV 89 fl (84-94) 02/14/22 05:46 MCH 30 pg (28-32) 02/14/22 05:46 MCHC 33 % (32-34) 02/14/22 05:46 RDW 16.5 % (13.2-15.2) H 02/14/22 05:46 Plt Count 282 K/mm3 (140-440) 02/14/22 05:46 Lymph % (Auto) 13.7 % (13.4-35.0) 02/14/22 05:46 [place] % (Auto) 13.7 % (0.0-7.3) H 02/14/22 05:46 Eos % (Auto) 6.2 % (0.0-4.3) H 02/14/22 05:46 Baso % (Auto) 0.7 % (0.0-1.8) 02/14/22 05:46 Lymph # (Auto) 0.9 K/mm3 (1.2-5.4) L 02/14/22 05:46 [place] # (Auto) 0.9 K/mm3 (0.0-0.8) H 02/14/22 05:46 Eos # (Auto) 0.4 K/mm3 (0.0-0.4) 02/14/22 05:46 Baso # (Auto) 0.0 K/mm3 (0.0-0.1) 02/14/22 05:46 Seg Neutrophils % 65.7 % (40.0-70.0) 02/14/22 05:46 Seg Neutrophils # 4.3 K/mm3 (1.8-7.7) 02/14/22 05:46 PT 15.5 Sec. (12.2-14.9) H 02/10/22 09:12 INR 1.10 (0.87-1.13) 02/10/22 09:12 APTT 33.7 Sec. (24.2-36.6) 02/10/22 09:12 Sodium 141 mmol/L (137-145) 02/14/22 05:46 Potassium 4.1 mmol/L (3.6-5.0) 02/14/22 05:46 Chloride 106.3 mmol/L (98-107) 02/14/22 05:46 Carbon Dioxide 24 mmol/L (22-30) 02/14/22 05:46 Anion Gap 15 mmol/L 02/14/22 05:46 BUN 11 mg/dL (9-20) 02/14/22 05:46 Creatinine 0.8 mg/dL (0.8-1.3) 02/14/22 05:46 Estimated GFR > 60 ml/min 02/14/22 05:46 BUN/Creatinine Ratio 14 % 02/14/22 05:46 Glucose 93 mg/dL (75-100) 02/14/22 05:46 POC Glucose 84 mg/dL (70-105) 02/10/22 21:27 Calcium 8.8 mg/dL (8.4-10.2) 02/14/22 05:46 Magnesium 2.30 mg/dL (1.7-2.3) 02/10/22 13:23 Total Bilirubin 0.70 mg/dL (0.1-1.2) 02/14/22 05:46 AST 18 units/L (5-40) 02/14/22 05:46 ALT 16 units/L (7-56) 02/14/22 05:46 Alkaline Phosphatase 128 units/L (35-129) 02/14/22 05:46 Troponin T 0.013 ng/mL (0.00-0.029) 02/11/22 00:04 NT-Pro-B Natriuret Pep 198.5 pg/mL (0-900) 02/10/22 09:23 Total Protein 6.0 g/dL (6.3-8.2) L D 02/14/22 05:46 Albumin 3.1 g/dL (3.9-5) L 02/14/22 05:46 Albumin/Globulin Ratio 1.1 % 02/14/22 05:46 Triglycerides 48 mg/dL (2-149) 02/10/22 09:23 Cholesterol 142 mg/dL (50-199) 02/10/22 09:23 LDL Cholesterol Direct 83 mg/dL (50-130) 02/10/22 09:23 HDL Cholesterol 44 mg/dL (40-59) 02/10/22 09:23 Cholesterol/HDL Ratio 2.97 % 02/10/22 09:23 TSH 2.660 mlU/mL (0.270-4.200) 02/10/22 13:23 Arias/IV: Voiding Method Urinal Active Medications - Current Medications Current Medications: Generic Name Dose Route Start Last Admin Trade Name Freq PRN Reason Stop Dose Admin Acetaminophen 650 mg 02/10/22 13:17 Acetaminophen 325 Mg Tab PO Q4H PRN Pain MILD(1-3)/Fever >100.5/RASMUSSEN Albuterol 2.5 mg 02/10/22 13:17 Albuterol 2.5 Mg/3 Ml Nebu IH Q4HRT PRN Shortness Of Breath Hydromorphone HCl 0.5 mg 02/10/22 13:17 Hydromorphone 1 Mg/1 Ml Inj IV Q13H PRN Pain , Severe (7-10) Vancomycin HCl 1,250 mg/ 275 mls @ 137.5 mls/hr 02/10/22 20:00 02/13/22 20:26 Sodium Chloride IV 02/14/22 21:59 137.5 mls/hr Q12H TAMI Administration Cefepime HCl 2 gm in 100 mls @ 200 mls/hr 02/11/22 13:00 02/14/22 05:30 Cefepime/Ns 2 Gm/100 Ml IV 02/16/22 05:29 200 mls/hr Q8H TAMI Administration Protocol Nitroglycerin 0.4 mg 02/10/22 13:17 Nitroglycerin 0.4 Mg Tab Subl SL .Q5MIN PRN Chest Pain Ondansetron HCl 4 mg 02/10/22 13:17 02/10/22 13:56 Ondansetron 4 Mg/2 Ml Inj IV 4 mg Q8H PRN Administration Nausea And Vomiting Sodium Chloride 10 ml 02/10/22 22:00 02/13/22 22:04 Sodium Chloride 0.9% 10 Ml Flush Syringe IV 10 ml BID TAMI Administration Sodium Chloride 10 ml 02/10/22 13:17 Sodium Chloride 0.9% 10 Ml Flush Syringe IV PRN PRN LINE FLUSH Tramadol HCl 50 mg 02/10/22 13:20 Tramadol 50 Mg Tab PO Q6H PRN Pain, Moderate (4-6)
[2022-02-14] MEDS: VANCOMYCIN 1,250 MG in SODIUM CHLORIDE 0.9% 250ML 250 ML IV SCH ×2 (09:16→20:40)
--- NOTE | 2022-02-14 23:37 | Progress Note ---
Assessment and Plan Assessment and plan: --No evidence of congestive heart failure ; On echo LVEF is within normal limits, no fluid overload, proBNP within normal range No evidence of congestion on chest x-ray, patient does not have respiratory distress or shortness of breath Or any cardiac symptoms. Congestive heart failure ruled out -- Non-ST elevation IN: Due to troponine leak due to cellulitis Insignificant, troponin levels trended down --Right bundle branch block (RBBB) Telemetry monitoring, cardiology evaluated medical managem, --Obesity hypoventilation syndrome Balanced diet, increase physical activity discharge, outpatient pulmonary follow-up for sleep study. --Lymphedema Wound care consulted, supportive care. --Bilateral lower leg cellulitis Empiric IV antibiotic therapy. Supportive care, wound care surgery consulted. Follow cultures --Hypertension Monitor blood pressure every shift, continue medical management. --Diabetes Consistent carbohydrate diet, Accu-Chek, insulin protocol, hypoglycemia protocol. --DVT prophylaxis Supportive care, continue therapeutic anticoagulation. -- Advance care planning Disease education conducted, care plan discussed, diagnoses discussed, prognosis discussed, patient is full code, patient acknowledges understanding and agreement with care plan, +30 minutes. --Preventative health care Patient counseled regarding balanced diet, increase physical activity discharge, wound care and dressing care, low carbohydrate diet, low-sodium diet. +30 minutes. We will closely monitor the patient and adjust management as needed Plan of care reviewed with the patient and nurse Nurse to monitor the patient and adjust management as needed Wound care, wound care surgeon evaluation if needed DC planning per case management History Interval history: Have seen and examined the patient at the bedside Patient's chart and medications reviewed Patient feels a little better but has some discomfort in bilateral lower extremities Due to cellulitis and chronic ulcers No new complaints vital signs noted Hospitalist Physical - Constitutional Vitals: Temp Pulse Resp BP Pulse Ox 98.7 F 54 L 20 132/81 96 02/14/22 21:12 02/14/22 21:12 02/14/22 21:12 02/14/22 21:12 02/14/22 21:12 General appearance: Present: mild distress, well-nourished - EENT Eyes: Present: PERRL, EOM intact ENT: hearing intact, clear oral mucosa - Neck Neck: Present: supple, normal ROM - Respiratory Respiratory: bilateral: diminished, rhonchi, negative: rales, wheezing - Cardiovascular Rhythm: regular Heart Sounds: Present: S1 & S2 - Extremities Extremities: no ischemia, abnormal (Chronic lymphedema bilateral lower extremity) Extremity abnormal: other (Chronic nonhealing ulcers, acute CHF ruled out) - Abdominal General gastrointestinal: soft, non-tender, non-distended, normal bowel sounds - Integumentary Integumentary: Present: clear, warm - Psychiatric Psychiatric: appropriate mood/affect, cooperative - Neurologic Neurologic: moves all extremities HEART Score - HEART Score Troponin: Troponin T 0.013 ng/mL (0.00-0.029) 02/11/22 00:04 Results - Labs CBC & Chem 7: 02/14/22 05:46 02/14/22 05:46 Labs: Laboratory Last Values WBC 6.6 K/mm3 (4.5-11.0) 02/14/22 05:46 RBC 3.77 M/mm3 (3.65-5.03) 02/14/22 05:46 Hgb 11.2 gm/dl (11.8-15.2) L 02/14/22 05:46 Hct 33.6 % (35.5-45.6) L 02/14/22 05:46 MCV 89 fl (84-94) 02/14/22 05:46 MCH 30 pg (28-32) 02/14/22 05:46 MCHC 33 % (32-34) 02/14/22 05:46 RDW 16.5 % (13.2-15.2) H 02/14/22 05:46 Plt Count 282 K/mm3 (140-440) 02/14/22 05:46 Lymph % (Auto) 13.7 % (13.4-35.0) 02/14/22 05:46 [place] % (Auto) 13.7 % (0.0-7.3) H 02/14/22 05:46 Eos % (Auto) 6.2 % (0.0-4.3) H 02/14/22 05:46 Baso % (Auto) 0.7 % (0.0-1.8) 02/14/22 05:46 Lymph # (Auto) 0.9 K/mm3 (1.2-5.4) L 02/14/22 05:46 [place] # (Auto) 0.9 K/mm3 (0.0-0.8) H 02/14/22 05:46 Eos # (Auto) 0.4 K/mm3 (0.0-0.4) 02/14/22 05:46 Baso # (Auto) 0.0 K/mm3 (0.0-0.1) 02/14/22 05:46 Seg Neutrophils % 65.7 % (40.0-70.0) 02/14/22 05:46 Seg Neutrophils # 4.3 K/mm3 (1.8-7.7) 02/14/22 05:46 PT 15.5 Sec. (12.2-14.9) H 02/10/22 09:12 INR 1.10 (0.87-1.13) 02/10/22 09:12 APTT 33.7 Sec. (24.2-36.6) 02/10/22 09:12 Sodium 141 mmol/L (137-145) 02/14/22 05:46 Potassium 4.1 mmol/L (3.6-5.0) 02/14/22 05:46 Chloride 106.3 mmol/L (98-107) 02/14/22 05:46 Carbon Dioxide 24 mmol/L (22-30) 02/14/22 05:46 Anion Gap 15 mmol/L 02/14/22 05:46 BUN 11 mg/dL (9-20) 02/14/22 05:46 Creatinine 0.8 mg/dL (0.8-1.3) 02/14/22 05:46 Estimated GFR > 60 ml/min 02/14/22 05:46 BUN/Creatinine Ratio 14 % 02/14/22 05:46 Glucose 93 mg/dL (75-100) 02/14/22 05:46 POC Glucose 84 mg/dL (70-105) 02/10/22 21:27 Calcium 8.8 mg/dL (8.4-10.2) 02/14/22 05:46 Magnesium 2.30 mg/dL (1.7-2.3) 02/10/22 13:23 Total Bilirubin 0.70 mg/dL (0.1-1.2) 02/14/22 05:46 AST 18 units/L (5-40) 02/14/22 05:46 ALT 16 units/L (7-56) 02/14/22 05:46 Alkaline Phosphatase 128 units/L (35-129) 02/14/22 05:46 Troponin T 0.013 ng/mL (0.00-0.029) 02/11/22 00:04 NT-Pro-B Natriuret Pep 198.5 pg/mL (0-900) 02/10/22 09:23 Total Protein 6.0 g/dL (6.3-8.2) L D 02/14/22 05:46 Albumin 3.1 g/dL (3.9-5) L 02/14/22 05:46 Albumin/Globulin Ratio 1.1 % 02/14/22 05:46 Triglycerides 48 mg/dL (2-149) 02/10/22 09:23 Cholesterol 142 mg/dL (50-199) 02/10/22 09:23 LDL Cholesterol Direct 83 mg/dL (50-130) 02/10/22 09:23 HDL Cholesterol 44 mg/dL (40-59) 02/10/22 09:23 Cholesterol/HDL Ratio 2.97 % 02/10/22 09:23 TSH 2.660 mlU/mL (0.270-4.200) 02/10/22 13:23 Microbiology: Microbiology 02/12/22 09:28 Leg - Left Wound Culture - Preliminary Gram Negative Madi Gram Negative Madi#2 Arias/IV: Voiding Method Urinal Active Medications - Current Medications Current Medications: Generic Name Dose Route Start Last Admin Trade Name Freq PRN Reason Stop Dose Admin Acetaminophen 650 mg 02/10/22 13:17 Acetaminophen 325 Mg Tab PO Q4H PRN Pain MILD(1-3)/Fever >100.5/RASMUSSEN Albuterol 2.5 mg 02/10/22 13:17 Albuterol 2.5 Mg/3 Ml Nebu IH Q4HRT PRN Shortness Of Breath Hydromorphone HCl 0.5 mg 02/10/22 13:17 Hydromorphone 1 Mg/1 Ml Inj IV Q13H PRN Pain , Severe (7-10) Cefepime HCl 2 gm in 100 mls @ 200 mls/hr 02/11/22 13:00 02/14/22 22:39 Cefepime/Ns 2 Gm/100 Ml IV 02/16/22 05:29 200 mls/hr Q8H TAMI Administration Protocol Nitroglycerin 0.4 mg 02/10/22 13:17 Nitroglycerin 0.4 Mg Tab Subl SL .Q5MIN PRN Chest Pain Ondansetron HCl 4 mg 02/10/22 13:17 02/10/22 13:56 Ondansetron 4 Mg/2 Ml Inj IV 4 mg Q8H PRN Administration Nausea And Vomiting Silver Sulfadiazine 1 applic 02/14/22 13:00 02/14/22 23:28 Silver Sulfadiazine Cream 50 Gm TP 1 applic BID TAMI Administration Sodium Chloride 10 ml 02/10/22 22:00 02/14/22 22:40 Sodium Chloride 0.9% 10 Ml Flush Syringe IV 10 ml BID TMAI Administration Sodium Chloride 10 ml 02/10/22 13:17 Sodium Chloride 0.9% 10 Ml Flush Syringe IV PRN PRN LINE FLUSH Tramadol HCl 50 mg 02/10/22 13:20 Tramadol 50 Mg Tab PO Q6H PRN Pain, Moderate (4-6)
[2022-02-15] MEDS: CEFEPIME/NS 2 GM/100 ML 2 GM/100 ML BAG IV SCH ×3 (06:16→20:39)
--- NOTE | 2022-02-15 16:11 | Cat Scan Report ---
CT RIGHT LOWER EXTREMITY WITH CONTRAST CT LEFT LOWER EXTREMITY WITH CONTRAST INDICATION / CLINICAL INFORMATION: bilateral lower extremity tumor and cellulitis. TECHNIQUE: All CT scans at this location are performed using CT dose reduction for ALARA by means of automated exposure control. Axial CT images were obtained through the right and left lower extremitie s after 100 mL Omnipaque 300 IV contrast. Coronal and sagittal 2-D reconstruction images were produce d. COMPARISON: None available. FINDINGS: BONES: No fracture. No osseous lesion. MUSCLES / TENDONS: Moderate fatty atrophy of the muscles in bilateral lower legs. No acute soft tissu e swelling or abnormal enhancement. SOFT TISSUES: Moderate subcutaneous soft tissue edema of both thighs, right greater than left. Mild s kin thickening in the thighs. Severe bilateral lower extremity skin thickening and irregularity, righ t greater than left extending into bilateral feet. Moderate to severe subcutaneous fat soft tissue ed emilio. No soft tissue abscess. VISUALIZED JOINTS: No significant abnormality. ADDITIONAL FINDINGS: None. IMPRESSION: 1. Severe bilateral lower leg skin thickening and subcutaneous soft tissue edema. No soft tissue absc ess or osteomyelitis. Signer Name: Anshu Chavez MD Signed: 02/15/2022 4:07 PM Workstation Name: [id number]
--- NOTE | 2022-02-15 17:53 | Progress Note ---
Assessment and Plan Assessment and plan: -- Bilateral lower extremity chronic lymphedema Wound care, elevate the limb supportive care. Occupational Therapy, lymphedema management --Bilateral lower leg cellulitis and chronic ulcers Empiric IV antibiotic therapy. Supportive care, wound care consulted. Surgery evaluation noted and appreciated --Wound cultures positive for; gram-negative rods Follow sensitivities, currently patient is on cefepime, status post Vanco Consult ID, --No evidence of congestive heart failure ; On echo LVEF is within normal limits, no fluid overload, proBNP within normal range No evidence of congestion on chest x-ray, patient does not have respiratory distress or shortness of breath Or any cardiac symptoms. Congestive heart failure ruled out -- Non-ST elevation [place]: Due to troponine leak due to cellulitis Insignificant, troponin levels trended down --Right bundle branch block (RBBB) Telemetry monitoring, cardiology evaluated medical managem, --Obesity hypoventilation syndrome Balanced diet, increase physical activity discharge, outpatient pulmonary follow-up for sleep study. -- Bilateral lower extremity chronic lymphedema Wound care, elevate the limb supportive care. --Bilateral lower leg cellulitis and chronic ulcers Empiric IV antibiotic therapy. Supportive care, wound care consulted. Surgery evaluation noted and appreciated --Hypertension Monitor blood pressure every shift, continue medical management. --Diabetes melitis Consistent carbohydrate diet, Accu-Chek, insulin protocol, hypoglycemia protocol. --DVT prophylaxis Supportive care, continue therapeutic anticoagulation. -- Advance care planning Disease education conducted, care plan discussed, diagnoses discussed, prognosis discussed, patient is full code, patient acknowledges understanding and agreement with care plan, +30 minutes. --Preventative health care Patient counseled regarding balanced diet, increase physical activity discharge, wound care and dressing care, low carbohydrate diet, low-sodium diet. +30 minutes. We will closely monitor the patient and adjust management as needed Plan of care reviewed with the patient and nurse Nurse to monitor the patient and adjust management as needed Wound care, wound care surgeon evaluation if needed DC planning per case management 02/14 ; wound cultures positive for gram-negative rods Follow culture sensitivities and adjust antibiotics as needed ID consult if indicated ; wound cultures positive for gram-negative rods, currently on cefepime, follow sensitivities And adjust antibiotics History Interval history: I have seen and examined the patient at the bedside Patient's chart and medications reviewed Patient feels slightly better wants to go home Awaiting wound care nurse for evaluation recommendation Vital signs noted Hospitalist Physical - Constitutional Vitals: Temp Pulse Resp BP Pulse Ox 98.0 F 82 18 141/77 96 02/15/22 16:23 02/15/22 16:23 02/15/22 16:23 02/15/22 16:23 02/15/22 16:23 General appearance: Present: mild distress, well-nourished, obese (Morbidly obese) - EENT Eyes: Present: PERRL, EOM intact - Neck Neck: Present: supple, normal ROM - Respiratory Respiratory effort: normal Respiratory: bilateral: diminished, negative: rales, rhonchi, wheezing - Cardiovascular Rhythm: regular Heart Sounds: Present: S1 & S2 - Extremities Extremities: no ischemia, No edema - Abdominal General gastrointestinal: soft, non-tender, non-distended - Integumentary Integumentary: Present: clear, warm - Psychiatric Psychiatric: appropriate mood/affect, agitated - Neurologic Neurologic: moves all extremities HEART Score - HEART Score Troponin: Troponin T 0.013 ng/mL (0.00-0.029) 02/11/22 00:04 Results - Labs CBC & Chem 7: 02/14/22 05:46 02/14/22 05:46 Labs: Laboratory Last Values WBC 6.6 K/mm3 (4.5-11.0) 02/14/22 05:46 RBC 3.77 M/mm3 (3.65-5.03) 02/14/22 05:46 Hgb 11.2 gm/dl (11.8-15.2) L 02/14/22 05:46 Hct 33.6 % (35.5-45.6) L 02/14/22 05:46 MCV 89 fl (84-94) 02/14/22 05:46 MCH 30 pg (28-32) 02/14/22 05:46 MCHC 33 % (32-34) 02/14/22 05:46 RDW 16.5 % (13.2-15.2) H 02/14/22 05:46 Plt Count 282 K/mm3 (140-440) 02/14/22 05:46 Lymph % (Auto) 13.7 % (13.4-35.0) 02/14/22 05:46 Dixon % (Auto) 13.7 % (0.0-7.3) H 02/14/22 05:46 Eos % (Auto) 6.2 % (0.0-4.3) H 02/14/22 05:46 Baso % (Auto) 0.7 % (0.0-1.8) 02/14/22 05:46 Lymph # (Auto) 0.9 K/mm3 (1.2-5.4) L 02/14/22 05:46 Dixon # (Auto) 0.9 K/mm3 (0.0-0.8) H 02/14/22 05:46 Eos # (Auto) 0.4 K/mm3 (0.0-0.4) 02/14/22 05:46 Baso # (Auto) 0.0 K/mm3 (0.0-0.1) 02/14/22 05:46 Seg Neutrophils % 65.7 % (40.0-70.0) 02/14/22 05:46 Seg Neutrophils # 4.3 K/mm3 (1.8-7.7) 02/14/22 05:46 PT 15.5 Sec. (12.2-14.9) H 02/10/22 09:12 INR 1.10 (0.87-1.13) 02/10/22 09:12 APTT 33.7 Sec. (24.2-36.6) 02/10/22 09:12 Sodium 141 mmol/L (137-145) 02/14/22 05:46 Potassium 4.1 mmol/L (3.6-5.0) 02/14/22 05:46 Chloride 106.3 mmol/L (98-107) 02/14/22 05:46 Carbon Dioxide 24 mmol/L (22-30) 02/14/22 05:46 Anion Gap 15 mmol/L 02/14/22 05:46 BUN 11 mg/dL (9-20) 02/14/22 05:46 Creatinine 0.8 mg/dL (0.8-1.3) 02/14/22 05:46 Estimated GFR > 60 ml/min 02/14/22 05:46 BUN/Creatinine Ratio 14 % 02/14/22 05:46 Glucose 93 mg/dL (75-100) 02/14/22 05:46 POC Glucose 84 mg/dL (70-105) 02/10/22 21:27 Calcium 8.8 mg/dL (8.4-10.2) 02/14/22 05:46 Magnesium 2.30 mg/dL (1.7-2.3) 02/10/22 13:23 Total Bilirubin 0.70 mg/dL (0.1-1.2) 02/14/22 05:46 AST 18 units/L (5-40) 02/14/22 05:46 ALT 16 units/L (7-56) 02/14/22 05:46 Alkaline Phosphatase 128 units/L (35-129) 02/14/22 05:46 Troponin T 0.013 ng/mL (0.00-0.029) 02/11/22 00:04 NT-Pro-B Natriuret Pep 198.5 pg/mL (0-900) 02/10/22 09:23 Total Protein 6.0 g/dL (6.3-8.2) L D 02/14/22 05:46 Albumin 3.1 g/dL (3.9-5) L 02/14/22 05:46 Albumin/Globulin Ratio 1.1 % 02/14/22 05:46 Triglycerides 48 mg/dL (2-149) 02/10/22 09:23 Cholesterol 142 mg/dL (50-199) 02/10/22 09:23 LDL Cholesterol Direct 83 mg/dL (50-130) 02/10/22 09:23 HDL Cholesterol 44 mg/dL (40-59) 02/10/22 09:23 Cholesterol/HDL Ratio 2.97 % 02/10/22 09:23 TSH 2.660 mlU/mL (0.270-4.200) 02/10/22 13:23 Microbiology: Microbiology 02/12/22 09:28 Leg - Left Wound Culture - Preliminary Gram Negative Madi Gram Negative Madi#2 Arias/IV: Voiding Method Urinal Active Medications - Current Medications Current Medications: Generic Name Dose Route Start Last Admin Trade Name Freq PRN Reason Stop Dose Admin Acetaminophen 650 mg 02/10/22 13:17 Acetaminophen 325 Mg Tab PO Q4H PRN Pain MILD(1-3)/Fever >100.5/RASMUSSEN Albuterol 2.5 mg 02/10/22 13:17 Albuterol 2.5 Mg/3 Ml Nebu IH Q4HRT PRN Shortness Of Breath Hydromorphone HCl 0.5 mg 02/10/22 13:17 Hydromorphone 1 Mg/1 Ml Inj IV Q13H PRN Pain , Severe (7-10) Cefepime HCl 2 gm in 100 mls @ 200 mls/hr 02/11/22 13:00 02/15/22 13:25 Cefepime/Ns 2 Gm/100 Ml IV 02/16/22 05:29 200 mls/hr Q8H TAMI Administration Protocol Nitroglycerin 0.4 mg 02/10/22 13:17 Nitroglycerin 0.4 Mg Tab Subl SL .Q5MIN PRN Chest Pain Ondansetron HCl 4 mg 02/10/22 13:17 02/10/22 13:56 Ondansetron 4 Mg/2 Ml Inj IV 4 mg Q8H PRN Administration Nausea And Vomiting Silver Sulfadiazine 1 applic 02/14/22 13:00 02/15/22 10:02 Silver Sulfadiazine Cream 50 Gm TP 1 applic BID TAMI Administration Sodium Chloride 10 ml 02/10/22 22:00 02/15/22 09:57 Sodium Chloride 0.9% 10 Ml Flush Syringe IV 10 ml BID TAMI Administration Sodium Chloride 10 ml 02/10/22 13:17 Sodium Chloride 0.9% 10 Ml Flush Syringe IV PRN PRN LINE FLUSH Tramadol HCl 50 mg 02/10/22 13:20 Tramadol 50 Mg Tab PO Q6H PRN Pain, Moderate (4-6) Nutrition/Malnutrition Assess - Dietary Evaluation Nutrition/Malnutrition Findings: Nutrition Notes Start: 02/15/22 11:50 Freq: Status: Active Protocol: Document 02/15/22 11:50 VINCE (Rec: 02/15/22 12:06 VINCE [id number]) Nutrition Notes Need for Assessment generated from: LOS Initial or Follow up Assessment Current Diagnosis Diabetes,Hypertension Other Pertinent Diagnosis Bilateral LE Lymphedema & Cellulitis w/Ulcers, NSTEMI, OHS, ... Current Diet Cardiac Diet (since D 02/11), D Suppl (since 02/15). Labs/Tests 02/15: WNL. Pertinent Medications 02/15: Nutritionally unremarkable. Height 5 ft 11 in Weight 133.4 kg [place] Body Weight (kg) 78.18 BMI 41.0 Intake Prior to Admission Good Weight change and time frame Pt denies having loss body weight [employer]. Weight Status Morbidly Obese Subjective/Other Information RD consult for LOS assessment. No reports available on Pt's PO intake at the time. Pt is on Room Air, O2 saturation @ 98%, according to Physical Assessment History notes. Pt has missing teeth, according to Physical Assessment History notes. Pt presents Bilateral LE Cellulitis w/Ulcers, according to Physical Assessment History notes. Percent of energy/protein needs met: Prescribed Cardiac Diet provides for energy/protein needs (2,230 Kcal/85 g) during LOS; additionally, Dietary Supplements will support wound healing processes with 190 Kcal and 5 g of protein. Burn Absent Trauma Absent GI Symptoms None Food Allergy No Skin Integrity/Comment Bilateral LE Cellulitis w/ Ulcers. Minimum of two criteria No #1 Nutrition Diagnosis Increased nutrient needs ( specify in comment below) Comments: Protein to support wound healing processes. Etiology Lymphedema. As Evidenced by Signs and Symptoms Pt presents Bilateral LE Cellulitis w/Ulcers, according to Physical Assessment History notes. Is patient on ventilator? No Is Patient Ambulatory and/or Out of Bed No REE-([facility]-confined to bed) 2520.852 Kcal/Kg value to use for calculation 15 Approximate Energy Requirements Using 2001 kcal/Kg Calculation Used for Recommendations Kcal/kg Additional Notes Protein: 1.25-1.5 g/Kg AdjBW; 133-159 g/day. Fluids: 1 ml/Kcal, or as per MD. Nutrition Intervention Change Diet Order: Continue Cardiac Diet. Add Supplement/Snack (indicate name/kcal Start 28.8 g pkt Jose; BID. /protein ) Provides kCal: 190 Provides Protein (gm) 5 Goal #1 Support, through dietary supplementation, wound healing processes during LOS. Goal #2 Maintain body weight within +/ -3% of admission body weight during LOS. Follow-Up By: 02/22/22 Additional Comments Continue monitoring food tolerance, %PO intake of meals , and BM.
[2022-02-16] MEDS: CEFEPIME/NS 2 GM/100 ML 2 GM/100 ML BAG IV SCH ×3 (05:58→21:31)
--- NOTE | 2022-02-16 07:23 | Progress Note ---
Assessment and Plan Assessment and plan: -- Bilateral lower extremity chronic lymphedema Wound care, elevate the limb supportive care. Occupational Therapy, lymphedema management --Bilateral lower leg cellulitis and chronic ulcers Empiric IV antibiotic therapy. Supportive care, wound care consulted. Surgery evaluation noted and appreciated --Wound cultures positive for; gram-negative rods/Pseudomonas Follow sensitivities, currently patient is on cefepime, status post Vanco Consult ID, --No evidence of congestive heart failure ; On echo LVEF is within normal limits, no fluid overload, proBNP within normal range No evidence of congestion on chest x-ray, patient does not have respiratory distress or shortness of breath Or any cardiac symptoms. Congestive heart failure ruled out -- Non-ST elevation [place]: Due to troponine leak due to cellulitis Insignificant, troponin levels trended down --Right bundle branch block (RBBB) Telemetry monitoring, cardiology evaluated medical managem, --Obesity hypoventilation syndrome Balanced diet, increase physical activity discharge, outpatient pulmonary follow-up for sleep study. -- Bilateral lower extremity chronic lymphedema Wound care, elevate the limb supportive care. CT lower extremity, no osteomyelitis, no abscess soft tissue swelling --Bilateral lower leg cellulitis and chronic ulcers Empiric IV antibiotic therapy. Supportive care, wound care consulted. Surgery evaluation noted and appreciated --Hypertension Monitor blood pressure every shift, continue medical management. --Diabetes melitis Consistent carbohydrate diet, Accu-Chek, insulin protocol, hypoglycemia protocol. --DVT prophylaxis Supportive care, continue therapeutic anticoagulation. -- Advance care planning Disease education conducted, care plan discussed, diagnoses discussed, prognosis discussed, patient is full code, patient acknowledges understanding and agreement with care plan, +30 minutes. --Preventative health care Patient counseled regarding balanced diet, increase physical activity discharge, wound care and dressing care, low carbohydrate diet, low-sodium diet. +30 minutes. We will closely monitor the patient and adjust management as needed Plan of care reviewed with the patient and nurse Nurse to monitor the patient and adjust management as needed Wound care, wound care surgeon evaluation if needed DC planning per case management 02/14 ; wound cultures positive for gram-negative rods Follow culture sensitivities and adjust antibiotics as needed ID consult if indicated ; wound cultures positive for gram-negative rods, currently on cefepime, follow sensitivities And adjust antibiotics 02/16; patient received 5 days of cefepime, will continue for 5 more days ID consulted, continue wound care History Interval history: Have seen and examined the patient at the bedside Patient's chart and medications reviewed Patient complains of lower extremity pain Afebrile, vital signs noted Wound cultures positive for Pseudomonas and gram-negative rods Hospitalist Physical - Constitutional Vitals: Temp Pulse Resp BP Pulse Ox 98.7 F 60 16 135/57 95 02/16/22 03:13 02/16/22 03:13 02/16/22 03:13 02/16/22 03:13 02/16/22 03:13 General appearance: Present: mild distress, well-nourished - EENT Eyes: Present: PERRL, EOM intact - Neck Neck: Present: supple, normal ROM - Respiratory Respiratory effort: normal Respiratory: bilateral: diminished, negative: rales, rhonchi, wheezing - Cardiovascular Rhythm: regular Heart Sounds: Present: S1 & S2 - Extremities Extremities: no ischemia, abnormal ( infected wound) Extremity abnormal: edema, other (Chronic lymphedema) - Abdominal General gastrointestinal: soft, non-tender, non-distended, normal bowel sounds - Integumentary Integumentary: Present: clear, warm - Psychiatric Psychiatric: appropriate mood/affect, cooperative - Neurologic Neurologic: CNII-XII intact, moves all extremities HEART Score - HEART Score Troponin: Troponin T 0.013 ng/mL (0.00-0.029) 02/11/22 00:04 Results - Labs CBC & Chem 7: 02/14/22 05:46 02/14/22 05:46 Labs: Laboratory Last Values WBC 6.6 K/mm3 (4.5-11.0) 02/14/22 05:46 RBC 3.77 M/mm3 (3.65-5.03) 02/14/22 05:46 Hgb 11.2 gm/dl (11.8-15.2) L 02/14/22 05:46 Hct 33.6 % (35.5-45.6) L 02/14/22 05:46 MCV 89 fl (84-94) 02/14/22 05:46 MCH 30 pg (28-32) 02/14/22 05:46 MCHC 33 % (32-34) 02/14/22 05:46 RDW 16.5 % (13.2-15.2) H 02/14/22 05:46 Plt Count 282 K/mm3 (140-440) 02/14/22 05:46 Lymph % (Auto) 13.7 % (13.4-35.0) 02/14/22 05:46 [place]le % (Auto) 13.7 % (0.0-7.3) H 02/14/22 05:46 Eos % (Auto) 6.2 % (0.0-4.3) H 02/14/22 05:46 Baso % (Auto) 0.7 % (0.0-1.8) 02/14/22 05:46 Lymph # (Auto) 0.9 K/mm3 (1.2-5.4) L 02/14/22 05:46 [place]le # (Auto) 0.9 K/mm3 (0.0-0.8) H 02/14/22 05:46 Eos # (Auto) 0.4 K/mm3 (0.0-0.4) 02/14/22 05:46 Baso # (Auto) 0.0 K/mm3 (0.0-0.1) 02/14/22 05:46 Seg Neutrophils % 65.7 % (40.0-70.0) 02/14/22 05:46 Seg Neutrophils # 4.3 K/mm3 (1.8-7.7) 02/14/22 05:46 PT 15.5 Sec. (12.2-14.9) H 02/10/22 09:12 INR 1.10 (0.87-1.13) 02/10/22 09:12 APTT 33.7 Sec. (24.2-36.6) 02/10/22 09:12 Sodium 141 mmol/L (137-145) 02/14/22 05:46 Potassium 4.1 mmol/L (3.6-5.0) 02/14/22 05:46 Chloride 106.3 mmol/L (98-107) 02/14/22 05:46 Carbon Dioxide 24 mmol/L (22-30) 02/14/22 05:46 Anion Gap 15 mmol/L 02/14/22 05:46 BUN 11 mg/dL (9-20) 02/14/22 05:46 Creatinine 0.8 mg/dL (0.8-1.3) 02/14/22 05:46 Estimated GFR > 60 ml/min 02/14/22 05:46 BUN/Creatinine Ratio 14 % 02/14/22 05:46 Glucose 93 mg/dL (75-100) 02/14/22 05:46 POC Glucose 84 mg/dL (70-105) 02/10/22 21:27 Calcium 8.8 mg/dL (8.4-10.2) 02/14/22 05:46 Magnesium 2.30 mg/dL (1.7-2.3) 02/10/22 13:23 Total Bilirubin 0.70 mg/dL (0.1-1.2) 02/14/22 05:46 AST 18 units/L (5-40) 02/14/22 05:46 ALT 16 units/L (7-56) 02/14/22 05:46 Alkaline Phosphatase 128 units/L (35-129) 02/14/22 05:46 Troponin T 0.013 ng/mL (0.00-0.029) 02/11/22 00:04 NT-Pro-B Natriuret Pep 198.5 pg/mL (0-900) 02/10/22 09:23 Total Protein 6.0 g/dL (6.3-8.2) L D 02/14/22 05:46 Albumin 3.1 g/dL (3.9-5) L 02/14/22 05:46 Albumin/Globulin Ratio 1.1 % 02/14/22 05:46 Triglycerides 48 mg/dL (2-149) 02/10/22 09:23 Cholesterol 142 mg/dL (50-199) 02/10/22 09:23 LDL Cholesterol Direct 83 mg/dL (50-130) 02/10/22 09:23 HDL Cholesterol 44 mg/dL (40-59) 02/10/22 09:23 Cholesterol/HDL Ratio 2.97 % 02/10/22 09:23 TSH 2.660 mlU/mL (0.270-4.200) 02/10/22 13:23 Microbiology: Microbiology 02/12/22 09:28 Leg - Left Wound Culture - Preliminary Pseudomonas Aeruginosa Gram Negative Madi#2 Arias/IV: Voiding Method Urinal Active Medications - Current Medications Current Medications: Generic Name Dose Route Start Last Admin Trade Name Freq PRN Reason Stop Dose Admin Acetaminophen 650 mg 02/10/22 13:17 Acetaminophen 325 Mg Tab PO Q4H PRN Pain MILD(1-3)/Fever >100.5/RASMUSSEN Albuterol 2.5 mg 02/10/22 13:17 Albuterol 2.5 Mg/3 Ml Nebu IH Q4HRT PRN Shortness Of Breath Hydromorphone HCl 0.5 mg 02/10/22 13:17 Hydromorphone 1 Mg/1 Ml Inj IV Q13H PRN Pain , Severe (7-10) Nitroglycerin 0.4 mg 02/10/22 13:17 Nitroglycerin 0.4 Mg Tab Subl SL .Q5MIN PRN Chest Pain Ondansetron HCl 4 mg 02/10/22 13:17 02/10/22 13:56 Ondansetron 4 Mg/2 Ml Inj IV 4 mg Q8H PRN Administration Nausea And Vomiting Silver Sulfadiazine 1 applic 02/14/22 13:00 02/15/22 22:40 Silver Sulfadiazine Cream 50 Gm TP 1 applic BID TAMI Administration Sodium Chloride 10 ml 02/10/22 22:00 02/15/22 21:12 Sodium Chloride 0.9% 10 Ml Flush Syringe IV 10 ml BID TAMI Administration Sodium Chloride 10 ml 02/10/22 13:17 Sodium Chloride 0.9% 10 Ml Flush Syringe IV PRN PRN LINE FLUSH Tramadol HCl 50 mg 02/10/22 13:20 Tramadol 50 Mg Tab PO Q6H PRN Pain, Moderate (4-6) Nutrition/Malnutrition Assess - Dietary Evaluation Nutrition/Malnutrition Findings: Nutrition Notes Start: 02/15/22 11:50 Freq: Status: Active Protocol: Document 02/15/22 11:50 VINCE (Rec: 02/15/22 12:06 VINCE [id number]) Nutrition Notes Need for Assessment generated from: LOS Initial or Follow up Assessment Current Diagnosis Diabetes,Hypertension Other Pertinent Diagnosis Bilateral LE Lymphedema & Cellulitis w/Ulcers, NSTEMI, OHS, ... Current Diet Cardiac Diet (since D 02/11), D Suppl (since 02/15). Labs/Tests 02/15: WNL. Pertinent Medications 02/15: Nutritionally unremarkable. Height 5 ft 11 in Weight 133.4 kg [place] Body Weight (kg) 78.18 BMI 41.0 Intake Prior to Admission Good Weight change and time frame Pt denies having loss body weight [employer]. Weight Status Morbidly Obese Subjective/Other Information RD consult for LOS assessment. No reports available on Pt's PO intake at the time. Pt is on Room Air, O2 saturation @ 98%, according to Physical Assessment History notes. Pt has missing teeth, according to Physical Assessment History notes. Pt presents Bilateral LE Cellulitis w/Ulcers, according to Physical Assessment History notes. Percent of energy/protein needs met: Prescribed Cardiac Diet provides for energy/protein needs (2,230 Kcal/85 g) during LOS; additionally, Dietary Supplements will support wound healing processes with 190 Kcal and 5 g of protein. Burn Absent Trauma Absent GI Symptoms None Food Allergy No Skin Integrity/Comment Bilateral LE Cellulitis w/ Ulcers. Minimum of two criteria No #1 Nutrition Diagnosis Increased nutrient needs ( specify in comment below) Comments: Protein to support wound healing processes. Etiology Lymphedema. As Evidenced by Signs and Symptoms Pt presents Bilateral LE Cellulitis w/Ulcers, according to Physical Assessment History notes. Is patient on ventilator? No Is Patient Ambulatory and/or Out of Bed No REE-([facility]-confined to bed) 2520.852 Kcal/Kg value to use for calculation 15 Approximate Energy Requirements Using 2001 kcal/Kg Calculation Used for Recommendations Kcal/kg Additional Notes Protein: 1.25-1.5 g/Kg AdjBW; 133-159 g/day. Fluids: 1 ml/Kcal, or as per MD. Nutrition Intervention Change Diet Order: Continue Cardiac Diet. Add Supplement/Snack (indicate name/kcal Start 28.8 g pkt Jose; BID. /protein ) Provides kCal: 190 Provides Protein (gm) 5 Goal #1 Support, through dietary supplementation, wound healing processes during LOS. Goal #2 Maintain body weight within +/ -3% of admission body weight during LOS. Follow-Up By: 02/22/22 Additional Comments Continue monitoring food tolerance, %PO intake of meals , and BM.
--- NOTE | 2022-02-17 02:12 | Progress Note ---
Assessment and Plan Assessment and plan: CT scans lower extremity; soft tissue swelling no evidence of abscess, no evidence of osteomyelitis -- Bilateral lower extremity chronic lymphedema Wound care, elevate the limb supportive care. Occupational Therapy, lymphedema management --Bilateral lower leg cellulitis and chronic ulcers Empiric IV antibiotic therapy. Supportive care, wound care consulted. Surgery evaluation noted and appreciated --Wound cultures positive for; gram-negative rods/Pseudomonas Follow sensitivities, currently patient is on cefepime, status post Vanco Consult ID, --No evidence of congestive heart failure ; On echo LVEF is within normal limits, no fluid overload, proBNP within normal range No evidence of congestion on chest x-ray, patient does not have respiratory distress or shortness of breath Or any cardiac symptoms. Congestive heart failure ruled out -- Non-ST elevation [place]: Due to troponine leak due to cellulitis Insignificant, troponin levels trended down --Right bundle branch block (RBBB) Telemetry monitoring, cardiology evaluated medical managem, --Obesity hypoventilation syndrome Balanced diet, increase physical activity discharge, outpatient pulmonary follow-up for sleep study. -- Bilateral lower extremity chronic lymphedema Wound care, elevate the limb supportive care. CT lower extremity, no osteomyelitis, no abscess soft tissue swelling --Hypertension Monitor blood pressure every shift, continue medical management. --Diabetes melitis Consistent carbohydrate diet, Accu-Chek, insulin protocol, hypoglycemia protocol. --DVT prophylaxis Supportive care, continue therapeutic anticoagulation. -- Advance care planning Disease education conducted, care plan discussed, diagnoses discussed, prognosis discussed, patient is full code, patient acknowledges understanding and agreement with care plan, +30 minutes. --Preventative health care Patient counseled regarding balanced diet, increase physical activity discharge, wound care and dressing care, low carbohydrate diet, low-sodium diet. +30 minutes. We will closely monitor the patient and adjust management as needed Plan of care reviewed with the patient and nurse Nurse to monitor the patient and adjust management as needed Wound care, wound care surgeon evaluation if needed DC planning per case management 02/14 ; wound cultures positive for gram-negative rods Follow culture sensitivities and adjust antibiotics as needed ID consult if indicated ; wound cultures positive for gram-negative rods, currently on cefepime, follow sensitivities And adjust antibiotics 02/16; patient received 5 days of cefepime, will continue for 5 more days ID consulted, continue wound care 02/17; continue IV cefepime, ID evaluation noted and appreciated, DC planning per case management History Interval history: Patient with chronic bilateral lower extremity cellulitis with chronic wounds with positive urine cultures on IV cefepime Also has bilateral lymphedema, surgery ID and wound care following Patient feels slightly better However eager to go home Vital signs reviewed Hospitalist Physical - Constitutional Vitals: Temp Pulse Resp BP Pulse Ox 97.6 F 45 L 16 144/70 96 02/17/22 00:28 02/17/22 00:28 02/17/22 00:28 02/17/22 00:28 02/17/22 00:28 General appearance: Present: mild distress, well-nourished - EENT Eyes: Present: PERRL, EOM intact - Neck Neck: Present: supple, normal ROM - Respiratory Respiratory effort: normal Respiratory: bilateral: diminished, negative: rales, rhonchi, wheezing - Cardiovascular Rhythm: regular Heart Sounds: Present: S1 & S2 - Extremities Extremities: no ischemia, abnormal (Chronic cellulitis and lymphedema) Extremity abnormal: other (Chronic infected wounds) - Abdominal General gastrointestinal: soft, non-tender, non-distended, normal bowel sounds - Integumentary Integumentary: Present: clear, warm - Psychiatric Psychiatric: appropriate mood/affect, cooperative - Neurologic Neurologic: moves all extremities HEART Score - HEART Score Troponin: Troponin T 0.013 ng/mL (0.00-0.029) 02/11/22 00:04 Results - Labs CBC & Chem 7: 02/14/22 05:46 02/14/22 05:46 Labs: Laboratory Last Values WBC 6.6 K/mm3 (4.5-11.0) 02/14/22 05:46 RBC 3.77 M/mm3 (3.65-5.03) 02/14/22 05:46 Hgb 11.2 gm/dl (11.8-15.2) L 02/14/22 05:46 Hct 33.6 % (35.5-45.6) L 02/14/22 05:46 MCV 89 fl (84-94) 02/14/22 05:46 MCH 30 pg (28-32) 02/14/22 05:46 MCHC 33 % (32-34) 02/14/22 05:46 RDW 16.5 % (13.2-15.2) H 02/14/22 05:46 Plt Count 282 K/mm3 (140-440) 02/14/22 05:46 Lymph % (Auto) 13.7 % (13.4-35.0) 02/14/22 05:46 [place] % (Auto) 13.7 % (0.0-7.3) H 02/14/22 05:46 Eos % (Auto) 6.2 % (0.0-4.3) H 02/14/22 05:46 Baso % (Auto) 0.7 % (0.0-1.8) 02/14/22 05:46 Lymph # (Auto) 0.9 K/mm3 (1.2-5.4) L 02/14/22 05:46 [place] # (Auto) 0.9 K/mm3 (0.0-0.8) H 02/14/22 05:46 Eos # (Auto) 0.4 K/mm3 (0.0-0.4) 02/14/22 05:46 Baso # (Auto) 0.0 K/mm3 (0.0-0.1) 02/14/22 05:46 Seg Neutrophils % 65.7 % (40.0-70.0) 02/14/22 05:46 Seg Neutrophils # 4.3 K/mm3 (1.8-7.7) 02/14/22 05:46 PT 15.5 Sec. (12.2-14.9) H 02/10/22 09:12 INR 1.10 (0.87-1.13) 02/10/22 09:12 APTT 33.7 Sec. (24.2-36.6) 02/10/22 09:12 Sodium 141 mmol/L (137-145) 02/14/22 05:46 Potassium 4.1 mmol/L (3.6-5.0) 02/14/22 05:46 Chloride 106.3 mmol/L (98-107) 02/14/22 05:46 Carbon Dioxide 24 mmol/L (22-30) 02/14/22 05:46 Anion Gap 15 mmol/L 02/14/22 05:46 BUN 11 mg/dL (9-20) 02/14/22 05:46 Creatinine 0.8 mg/dL (0.8-1.3) 02/14/22 05:46 Estimated GFR > 60 ml/min 02/14/22 05:46 BUN/Creatinine Ratio 14 % 02/14/22 05:46 Glucose 93 mg/dL (75-100) 02/14/22 05:46 POC Glucose 84 mg/dL (70-105) 02/10/22 21:27 Calcium 8.8 mg/dL (8.4-10.2) 02/14/22 05:46 Magnesium 2.30 mg/dL (1.7-2.3) 02/10/22 13:23 Total Bilirubin 0.70 mg/dL (0.1-1.2) 02/14/22 05:46 AST 18 units/L (5-40) 02/14/22 05:46 ALT 16 units/L (7-56) 02/14/22 05:46 Alkaline Phosphatase 128 units/L (35-129) 02/14/22 05:46 Troponin T 0.013 ng/mL (0.00-0.029) 02/11/22 00:04 NT-Pro-B Natriuret Pep 198.5 pg/mL (0-900) 02/10/22 09:23 Total Protein 6.0 g/dL (6.3-8.2) L D 02/14/22 05:46 Albumin 3.1 g/dL (3.9-5) L 02/14/22 05:46 Albumin/Globulin Ratio 1.1 % 02/14/22 05:46 Triglycerides 48 mg/dL (2-149) 02/10/22 09:23 Cholesterol 142 mg/dL (50-199) 02/10/22 09:23 LDL Cholesterol Direct 83 mg/dL (50-130) 02/10/22 09:23 HDL Cholesterol 44 mg/dL (40-59) 02/10/22 09:23 Cholesterol/HDL Ratio 2.97 % 02/10/22 09:23 TSH 2.660 mlU/mL (0.270-4.200) 02/10/22 13:23 Microbiology: Microbiology 02/12/22 09:28 Leg - Left Wound Culture - Preliminary Pseudomonas Aeruginosa Gram Negative Madi#2 Arias/IV: Voiding Method Urinal Active Medications - Current Medications Current Medications: Generic Name Dose Route Start Last Admin Trade Name Freq PRN Reason Stop Dose Admin Acetaminophen 650 mg 02/10/22 13:17 Acetaminophen 325 Mg Tab PO Q4H PRN Pain MILD(1-3)/Fever >100.5/RASMUSSEN Albuterol 2.5 mg 02/10/22 13:17 Albuterol 2.5 Mg/3 Ml Nebu IH Q4HRT PRN Shortness Of Breath Hydromorphone HCl 0.5 mg 02/10/22 13:17 Hydromorphone 1 Mg/1 Ml Inj IV Q13H PRN Pain , Severe (7-10) Cefepime HCl 2 gm in 100 mls @ 200 mls/hr 02/16/22 14:00 02/16/22 21:31 Cefepime/Ns 2 Gm/100 Ml IV 02/21/22 13:59 200 mls/hr Q8H TAMI Administration Protocol Nitroglycerin 0.4 mg 02/10/22 13:17 Nitroglycerin 0.4 Mg Tab Subl SL .Q5MIN PRN Chest Pain Ondansetron HCl 4 mg 02/10/22 13:17 02/10/22 13:56 Ondansetron 4 Mg/2 Ml Inj IV 4 mg Q8H PRN Administration Nausea And Vomiting Silver Sulfadiazine 1 applic 02/14/22 13:00 02/16/22 16:26 Silver Sulfadiazine Cream 50 Gm TP Not Given BID TAMI Sodium Chloride 10 ml 02/10/22 22:00 02/16/22 13:54 Sodium Chloride 0.9% 10 Ml Flush Syringe IV 10 ml BID TAMI Administration Sodium Chloride 10 ml 02/10/22 13:17 Sodium Chloride 0.9% 10 Ml Flush Syringe IV PRN PRN LINE FLUSH Tramadol HCl 50 mg 02/10/22 13:20 Tramadol 50 Mg Tab PO Q6H PRN Pain, Moderate (4-6) Nutrition/Malnutrition Assess - Dietary Evaluation Nutrition/Malnutrition Findings: Nutrition Notes Start: 02/15/22 11:50 Freq: Status: Active Protocol: Document 02/15/22 11:50 VINCE (Rec: 02/15/22 12:06 VINCE [id number]) Nutrition Notes Need for Assessment generated from: LOS Initial or Follow up Assessment Current Diagnosis Diabetes,Hypertension Other Pertinent Diagnosis Bilateral LE Lymphedema & Cellulitis w/Ulcers, NSTEMI, OHS, ... Current Diet Cardiac Diet (since D 02/11), D Suppl (since 02/15). Labs/Tests 02/15: WNL. Pertinent Medications 02/15: Nutritionally unremarkable. Height 5 ft 11 in Weight 133.4 kg [place] Body Weight (kg) 78.18 BMI 41.0 Intake Prior to Admission Good Weight change and time frame Pt denies having loss body weight [employer]. Weight Status Morbidly Obese Subjective/Other Information RD consult for LOS assessment. No reports available on Pt's PO intake at the time. Pt is on Room Air, O2 saturation @ 98%, according to Physical Assessment History notes. Pt has missing teeth, according to Physical Assessment History notes. Pt presents Bilateral LE Cellulitis w/Ulcers, according to Physical Assessment History notes. Percent of energy/protein needs met: Prescribed Cardiac Diet provides for energy/protein needs (2,230 Kcal/85 g) during LOS; additionally, Dietary Supplements will support wound healing processes with 190 Kcal and 5 g of protein. Burn Absent Trauma Absent GI Symptoms None Food Allergy No Skin Integrity/Comment Bilateral LE Cellulitis w/ Ulcers. Minimum of two criteria No #1 Nutrition Diagnosis Increased nutrient needs ( specify in comment below) Comments: Protein to support wound healing processes. Etiology Lymphedema. As Evidenced by Signs and Symptoms Pt presents Bilateral LE Cellulitis w/Ulcers, according to Physical Assessment History notes. Is patient on ventilator? No Is Patient Ambulatory and/or Out of Bed No REE-([facility]-confined to bed) 2520.852 Kcal/Kg value to use for calculation 15 Approximate Energy Requirements Using 2001 kcal/Kg Calculation Used for Recommendations Kcal/kg Additional Notes Protein: 1.25-1.5 g/Kg AdjBW; 133-159 g/day. Fluids: 1 ml/Kcal, or as per MD. Nutrition Intervention Change Diet Order: Continue Cardiac Diet. Add Supplement/Snack (indicate name/kcal Start 28.8 g pkt Jose; BID. /protein ) Provides kCal: 190 Provides Protein (gm) 5 Goal #1 Support, through dietary supplementation, wound healing processes during LOS. Goal #2 Maintain body weight within +/ -3% of admission body weight during LOS. Follow-Up By: 02/22/22 Additional Comments Continue monitoring food tolerance, %PO intake of meals , and BM.
[2022-02-17] MEDS: CEFEPIME/NS 2 GM/100 ML 2 GM/100 ML BAG IV SCH ×3 (05:08→21:59)
--- NOTE | 2022-02-17 10:21 | Progress Note ---
Subjective Date of service: 02/17/22 Interval history: ID Plan of care note: 76-year-old male with history of morbid obesity, hypertension, diabetes mellitus, chronic bilateral lower extremity lymphedema admitted on 02/12/2022 secondary to few weeks history of generalized weakness, dyspnea on exertion and worsening lower extremity edema with open wounds. On arrival, patient was afebrile stable. Initial WBC 6.2. Creatinine 0.8. Wound culture on 02/12/2022 growing Pseudomonas aeruginosa and gram-negative rods. CT shows severe bilateral lower extremity skin thickening subcutaneous soft tissue edema. Assessment/Plan: Bilateral chronic lower extremity wounds infected on top of chronic lymphedema: Secondary to Pseudomonas/gram-negative rods. Recommendations: Wound care consult Follow-up final report and cultures Continue cefepime 2 g IV every 8 hours Full consultation to follow in the morning Thank you Aliya Church MD Infectious Disease Motor Block Mechan[employer] [facility] C: [phone] O: [phone] Objective - Constitutional Vitals: Vital Signs Temp Pulse Resp BP Pulse Ox 97.3 F L 49 L 16 153/74 97 02/17/22 08:09 02/17/22 08:09 02/17/22 03:45 02/17/22 08:09 02/17/22 08:09 Temperature -Last 24 Hours Temperature 97.3 F Temperature 98.2 F Temperature 97.6 F Temperature 98.9 F Temperature 97.4 F Temperature 98.6 F - Labs CBC & Chem 7: 02/14/22 05:46 02/14/22 05:46
[2022-02-18] MEDS: CEFEPIME/NS 2 GM/100 ML 2 GM/100 ML BAG IV SCH (05:14)
--- NOTE | 2022-02-18 09:25 | Progress Note ---
Assessment and Plan Assessment and plan: CT scans lower extremity; soft tissue swelling no evidence of abscess, no evidence of osteomyelitis -- Bilateral lower extremity chronic lymphedema Wound care, elevate the limb supportive care. Occupational Therapy, lymphedema management --Bilateral lower leg cellulitis and chronic ulcers Empiric IV antibiotic therapy. Supportive care, wound care consulted. Surgery evaluation noted and appreciated --Wound cultures positive for; gram-negative rods/Pseudomonas Follow sensitivities, currently patient is on cefepime, status post Vanco Consult ID, --No evidence of congestive heart failure ; On echo LVEF is within normal limits, no fluid overload, proBNP within normal range No evidence of congestion on chest x-ray, patient does not have respiratory distress or shortness of breath Or any cardiac symptoms. Congestive heart failure ruled out -- Non-ST elevation [place]: Due to troponine leak due to cellulitis Insignificant, troponin levels trended down --Right bundle branch block (RBBB) Telemetry monitoring, cardiology evaluated medical managem, --Obesity hypoventilation syndrome Balanced diet, increase physical activity discharge, outpatient pulmonary follow-up for sleep study. -- Bilateral lower extremity chronic lymphedema Wound care, elevate the limb supportive care. CT lower extremity, no osteomyelitis, no abscess soft tissue swelling --Hypertension Monitor blood pressure every shift, continue medical management. --Diabetes melitis Consistent carbohydrate diet, Accu-Chek, insulin protocol, hypoglycemia protocol. --DVT prophylaxis Supportive care, continue therapeutic anticoagulation. -- Advance care planning Disease education conducted, care plan discussed, diagnoses discussed, prognosis discussed, patient is full code, patient acknowledges understanding and agreement with care plan, +30 minutes. --Preventative health care Patient counseled regarding balanced diet, increase physical activity discharge, wound care and dressing care, low carbohydrate diet, low-sodium diet. +30 minutes. We will closely monitor the patient and adjust management as needed Plan of care reviewed with the patient and nurse Nurse to monitor the patient and adjust management as needed Wound care, wound care surgeon evaluation if needed DC planning per case management 02/14 ; wound cultures positive for gram-negative rods Follow culture sensitivities and adjust antibiotics as needed ID consult if indicated ; wound cultures positive for gram-negative rods, currently on cefepime, follow sensitivities And adjust antibiotics 02/16; patient received 5 days of cefepime, will continue for 5 more days ID consulted, continue wound care 02/17; continue IV cefepime, ID evaluation noted and appreciated, DC planning per case management Hospitalist Physical - Constitutional Vitals: Temp Pulse Resp BP Pulse Ox 98.6 F 81 18 163/100 98 02/18/22 08:02 02/18/22 08:02 02/18/22 08:02 02/18/22 08:02 02/18/22 08:02 General appearance: Present: mild distress, well-nourished HEART Score - HEART Score Troponin: Troponin T 0.013 ng/mL (0.00-0.029) 02/11/22 00:04 Results - Labs CBC & Chem 7: 02/14/22 05:46 02/14/22 05:46 Labs: Laboratory Last Values WBC 6.6 K/mm3 (4.5-11.0) 02/14/22 05:46 RBC 3.77 M/mm3 (3.65-5.03) 02/14/22 05:46 Hgb 11.2 gm/dl (11.8-15.2) L 02/14/22 05:46 Hct 33.6 % (35.5-45.6) L 02/14/22 05:46 MCV 89 fl (84-94) 02/14/22 05:46 MCH 30 pg (28-32) 02/14/22 05:46 MCHC 33 % (32-34) 02/14/22 05:46 RDW 16.5 % (13.2-15.2) H 02/14/22 05:46 Plt Count 282 K/mm3 (140-440) 02/14/22 05:46 Lymph % (Auto) 13.7 % (13.4-35.0) 02/14/22 05:46 [place] % (Auto) 13.7 % (0.0-7.3) H 02/14/22 05:46 Eos % (Auto) 6.2 % (0.0-4.3) H 02/14/22 05:46 Baso % (Auto) 0.7 % (0.0-1.8) 02/14/22 05:46 Lymph # (Auto) 0.9 K/mm3 (1.2-5.4) L 02/14/22 05:46 [place] # (Auto) 0.9 K/mm3 (0.0-0.8) H 02/14/22 05:46 Eos # (Auto) 0.4 K/mm3 (0.0-0.4) 02/14/22 05:46 Baso # (Auto) 0.0 K/mm3 (0.0-0.1) 02/14/22 05:46 Seg Neutrophils % 65.7 % (40.0-70.0) 02/14/22 05:46 Seg Neutrophils # 4.3 K/mm3 (1.8-7.7) 02/14/22 05:46 PT 15.5 Sec. (12.2-14.9) H 02/10/22 09:12 INR 1.10 (0.87-1.13) 02/10/22 09:12 APTT 33.7 Sec. (24.2-36.6) 02/10/22 09:12 Sodium 141 mmol/L (137-145) 02/14/22 05:46 Potassium 4.1 mmol/L (3.6-5.0) 02/14/22 05:46 Chloride 106.3 mmol/L (98-107) 02/14/22 05:46 Carbon Dioxide 24 mmol/L (22-30) 02/14/22 05:46 Anion Gap 15 mmol/L 02/14/22 05:46 BUN 11 mg/dL (9-20) 02/14/22 05:46 Creatinine 0.8 mg/dL (0.8-1.3) 02/14/22 05:46 Estimated GFR > 60 ml/min 02/14/22 05:46 BUN/Creatinine Ratio 14 % 02/14/22 05:46 Glucose 93 mg/dL (75-100) 02/14/22 05:46 POC Glucose 84 mg/dL (70-105) 02/10/22 21:27 Calcium 8.8 mg/dL (8.4-10.2) 02/14/22 05:46 Magnesium 2.30 mg/dL (1.7-2.3) 02/10/22 13:23 Total Bilirubin 0.70 mg/dL (0.1-1.2) 02/14/22 05:46 AST 18 units/L (5-40) 02/14/22 05:46 ALT 16 units/L (7-56) 02/14/22 05:46 Alkaline Phosphatase 128 units/L (35-129) 02/14/22 05:46 Troponin T 0.013 ng/mL (0.00-0.029) 02/11/22 00:04 NT-Pro-B Natriuret Pep 198.5 pg/mL (0-900) 02/10/22 09:23 Total Protein 6.0 g/dL (6.3-8.2) L D 02/14/22 05:46 Albumin 3.1 g/dL (3.9-5) L 02/14/22 05:46 Albumin/Globulin Ratio 1.1 % 02/14/22 05:46 Triglycerides 48 mg/dL (2-149) 02/10/22 09:23 Cholesterol 142 mg/dL (50-199) 02/10/22 09:23 LDL Cholesterol Direct 83 mg/dL (50-130) 02/10/22 09:23 HDL Cholesterol 44 mg/dL (40-59) 02/10/22 09:23 Cholesterol/HDL Ratio 2.97 % 02/10/22 09:23 TSH 2.660 mlU/mL (0.270-4.200) 02/10/22 13:23 Microbiology: Microbiology 02/12/22 09:28 Leg - Left Wound Culture - Preliminary Pseudomonas Aeruginosa Gram Negative Madi#2 Arias/IV: Voiding Method Urinal Active Medications - Current Medications Current Medications: Generic Name Dose Route Start Last Admin Trade Name Freq PRN Reason Stop Dose Admin Acetaminophen 650 mg 02/10/22 13:17 Acetaminophen 325 Mg Tab PO Q4H PRN Pain MILD(1-3)/Fever >100.5/RASMUSSEN Albuterol 2.5 mg 02/10/22 13:17 Albuterol 2.5 Mg/3 Ml Nebu IH Q4HRT PRN Shortness Of Breath Hydromorphone HCl 0.5 mg 02/10/22 13:17 Hydromorphone 1 Mg/1 Ml Inj IV Q13H PRN Pain , Severe (7-10) Cefepime HCl 2 gm in 100 mls @ 200 mls/hr 02/16/22 14:00 02/18/22 05:14 Cefepime/Ns 2 Gm/100 Ml IV 02/21/22 13:59 200 mls/hr Q8H TAMI Administration Protocol Nitroglycerin 0.4 mg 02/10/22 13:17 Nitroglycerin 0.4 Mg Tab Subl SL .Q5MIN PRN Chest Pain Ondansetron HCl 4 mg 02/10/22 13:17 02/10/22 13:56 Ondansetron 4 Mg/2 Ml Inj IV 4 mg Q8H PRN Administration Nausea And Vomiting Silver Sulfadiazine 1 applic 02/14/22 13:00 02/17/22 21:59 Silver Sulfadiazine Cream 50 Gm TP 1 applic BID TAMI Administration Sodium Chloride 10 ml 02/10/22 22:00 02/17/22 21:59 Sodium Chloride 0.9% 10 Ml Flush Syringe IV 10 ml BID TAMI Administration Sodium Chloride 10 ml 02/10/22 13:17 Sodium Chloride 0.9% 10 Ml Flush Syringe IV PRN PRN LINE FLUSH Tramadol HCl 50 mg 02/10/22 13:20 Tramadol 50 Mg Tab PO Q6H PRN Pain, Moderate (4-6) Nutrition/Malnutrition Assess - Dietary Evaluation Nutrition/Malnutrition Findings: Nutrition Notes Start: 02/15/22 11:50 Freq: Status: Active Protocol: Document 02/15/22 11:50 VINCE (Rec: 02/15/22 12:06 VINCE [id number]) Nutrition Notes Need for Assessment generated from: LOS Initial or Follow up Assessment Current Diagnosis Diabetes,Hypertension Other Pertinent Diagnosis Bilateral LE Lymphedema & Cellulitis w/Ulcers, NSTEMI, OHS, ... Current Diet Cardiac Diet (since D 02/11), D Suppl (since 02/15). Labs/Tests 02/15: WNL. Pertinent Medications 02/15: Nutritionally unremarkable. Height 5 ft 11 in Weight 133.4 kg [place] Body Weight (kg) 78.18 BMI 41.0 Intake Prior to Admission Good Weight change and time frame Pt denies having loss body weight [employer]. Weight Status Morbidly Obese Subjective/Other Information RD consult for LOS assessment. No reports available on Pt's PO intake at the time. Pt is on Room Air, O2 saturation @ 98%, according to Physical Assessment History notes. Pt has missing teeth, according to Physical Assessment History notes. Pt presents Bilateral LE Cellulitis w/Ulcers, according to Physical Assessment History notes. Percent of energy/protein needs met: Prescribed Cardiac Diet provides for energy/protein needs (2,230 Kcal/85 g) during LOS; additionally, Dietary Supplements will support wound healing processes with 190 Kcal and 5 g of protein. Burn Absent Trauma Absent GI Symptoms None Food Allergy No Skin Integrity/Comment Bilateral LE Cellulitis w/ Ulcers. Minimum of two criteria No #1 Nutrition Diagnosis Increased nutrient needs ( specify in comment below) Comments: Protein to support wound healing processes. Etiology Lymphedema. As Evidenced by Signs and Symptoms Pt presents Bilateral LE Cellulitis w/Ulcers, according to Physical Assessment History notes. Is patient on ventilator? No Is Patient Ambulatory and/or Out of Bed No REE-([facility]-confined to bed) 2520.852 Kcal/Kg value to use for calculation 15 Approximate Energy Requirements Using 2001 kcal/Kg Calculation Used for Recommendations Kcal/kg Additional Notes Protein: 1.25-1.5 g/Kg AdjBW; 133-159 g/day. Fluids: 1 ml/Kcal, or as per MD. Nutrition Intervention Change Diet Order: Continue Cardiac Diet. Add Supplement/Snack (indicate name/kcal Start 28.8 g pkt Jose; BID. /protein ) Provides kCal: 190 Provides Protein (gm) 5 Goal #1 Support, through dietary supplementation, wound healing processes during LOS. Goal #2 Maintain body weight within +/ -3% of admission body weight during LOS. Follow-Up By: 02/22/22 Additional Comments Continue monitoring food tolerance, %PO intake of meals , and BM.
--- NOTE | 2022-02-18 11:39 | Consultation ---
History of Present Illness - Reason for Consult Consult date: 02/18/22 B/L LE cellulitis Requesting physician: TAYE GUEVARA - History of Present Illness The patient is a 76-year-old male with morbid obesity, hypertension, diabetes, bilateral lower extremity lymphedema was admitted from his doctor's office due to concerns for congestive heart failure. Patient has chronic bilateral lower extremity lymphedema. Infectious diseases was consulted to evaluate for cellulitis, lower extremity wounds. Cultures grew Pseudomonas. Patient has remained afebrile throughout the hospitalization. Been receiving IV cefepime since 02/16/2022. CT of the lower extremity with contrast revealed severe bilateral lower leg skin thickening and subcutaneous soft tissue edema, no evidence of abscess or osteomyelitis. Review of Systems: General: no fevers,chills or rigors HEENT: no new visual disturbance Respiratory: No cough, sputum, hemoptysis or shortness of breath Cardiovascular: No chest pain, syncope Gastrointestinal: No nausea, vomiting or diarrhea Genitourinary: No dysuria or hematuria Musculoskeletal: No new or worsening neck pain or back pain Neurologic: No headaches, seizures Hematologic: No easy bruising or bleeding Endocrine: No night sweats or acute weight loss Skin: negative for rash, jaundice Psychiatric: No suicidal or homicidal ideation Past History Past Medical History: diabetes, hypertension, other (See HPI) Past Surgical History: No surgical history, Other (Reviewed) Social history: . denies: smoking, alcohol abuse, prescription drug abuse Family history: diabetes, hypertension Medications and Allergies Allergies Allergy/AdvReac Type Severity Reaction Status Date / Time No Known Allergies Allergy Verified 02/13/22 08:33 Home Medications Medication Instructions Recorded Confirmed Last Taken Type No Known Home Medications [No 02/13/22 02/13/22 Unknown History Reported Home Medications] Active Meds: Active Medications Acetaminophen (Acetaminophen 325 Mg Tab) 650 mg PO Q4H PRN PRN Reason: Pain MILD(1-3)/Fever >100.5/RASMUSSEN Albuterol (Albuterol 2.5 Mg/3 Ml Nebu) 2.5 mg IH Q4HRT PRN PRN Reason: Shortness Of Breath Hydromorphone HCl (Hydromorphone 1 Mg/1 Ml Inj) 0.5 mg IV Q13H PRN PRN Reason: Pain , Severe (7-10) Cefepime HCl (Cefepime/Ns 2 Gm/100 Ml) 2 gm in 100 mls @ 200 mls/hr IV Q8H [facility]; Protocol Stop: 02/21/22 13:59 Last Admin: 02/18/22 05:14 Dose: 200 mls/hr Nitroglycerin (Nitroglycerin 0.4 Mg Tab Subl) 0.4 mg SL .Q5MIN PRN PRN Reason: Chest Pain Ondansetron HCl (Ondansetron 4 Mg/2 Ml Inj) 4 mg IV Q8H PRN PRN Reason: Nausea And Vomiting Last Admin: 02/10/22 13:56 Dose: 4 mg Silver Sulfadiazine (Silver Sulfadiazine Cream 50 Gm) 1 applic TP BID [facility] Last Admin: 02/18/22 09:54 Dose: Not Given Sodium Chloride (Sodium Chloride 0.9% 10 Ml Flush Syringe) 10 ml IV BID [facility] Last Admin: 02/17/22 21:59 Dose: 10 ml Sodium Chloride (Sodium Chloride 0.9% 10 Ml Flush Syringe) 10 ml IV PRN PRN PRN Reason: LINE FLUSH Tramadol HCl (Tramadol 50 Mg Tab) 50 mg PO Q6H PRN PRN Reason: Pain, Moderate (4-6) Physical Examination - Physical Exam Narrative exam: Physical Exam: Constitutional: Alert, cooperative. No acute distress. Morbidly obese Head, Ears, Nose: Normocephalic, atraumatic. External ears, nose normal Eyes: Conjunctivae/corneas clear. No icterus. No ptosis. Neck: Supple, no meningeal signs Cardiovascular: S1, S2 + Respiratory: Good air entry, clear to auscultation bilaterally GI: Soft, non-tender; bowel sounds normal. No peritoneal signs Musculoskeletal: Morbidly obese, bilateral lower extremity lymphedema, stasis changes, multiple superficial wounds on bilateral lower extremities Skin: No rash or abscess Hem/Lymphatic: No palpable cervical or supraclavicular nodes. No lymphangitis Psych: Mood ok. Affect normal Neurological: Awake, alert, oriented. No gross abnormality - Constitutional Vitals: Vital Signs Temp Pulse Resp BP Pulse Ox 98.6 F 81 18 163/100 98 02/18/22 08:02 02/18/22 08:02 02/18/22 08:02 02/18/22 08:02 02/18/22 08:02 Temperature -Last 24 Hours Temperature 98.6 F Temperature 98.9 F Temperature 99.4 F Temperature 98.2 F Temperature 98.3 F Temperature 98.7 F Results - Labs CBC & Chem 7: 02/14/22 05:46 02/14/22 05:46 - Imaging and Cardiology Chest x-ray: report reviewed, image reviewed (no pneumonia) Assessment and Plan Cultures: 02/12/2022 left leg wound culture: GNR, Pseudomonas aeruginosa susceptible to fluoroquinolones, cefepime. A/P: 76-year-old male with morbid obesity, hypertension, diabetes, bilateral lower extremity lymphedema, ID consulted for b/l LE cellulitis: #Bilateral lower extremity lymphedema, chronic nonhealing superficial wounds: Wounds have been present for several years, lymphedema present for at least more than 10 years. Lives at home, alone, does not have home health or any wound care services. Wound culture growth of GNR, Pseudomonas is reflective of colonization. No sepsis, no fever, no leukocytosis. #Morbid obesity #Diabetes Recs: -No new need for additional antibiotics, cefepime discontinued -Limb elevation, compression dressings, wound care -Please assist with wound care services as an outpatient Will sign off. Please call with questions Gosia Aguirre MD, FACP, [facility] O: [phone] F: [phone] C: [phone]
--- NOTE | 2022-02-18 14:42 | Discharge Summary ---
Providers - Providers Date of Admission: 02/10/22 18:15 Date of discharge: 02/18/22 Attending physician: TAYE GUEVARA 02/10/22 Consult to Cardiac Rehabilitation [CONS] Routine Reason For Exam: Phase I 02/10/22 13:18 Consult to Physician [CONS] Urgent Comment: Consulting Provider: FARZANA GUERRIER Physician Instructions: Reason For Exam: afib + troponin 02/10/22 13:57 Consult to Wound/ET Nurse [CONS] Routine Reason For Exam: wound eval 02/12/22 20:02 Physical Therapy Evaluation and Treat [CONS] Routine Comment: Reason For Exam: Lymphedema/chronic wound/evaluate and treat 02/13/22 09:38 Consult to Physician [CONS] Routine Comment: Consulting Provider: JULIETTE ASHBY Physician Instructions: Reason For Exam: Elder lower extremity cellulitis/chronic wounds 02/14/22 13:46 Occupational Therapy Evaluate and Treat [CONS] Routine Comment: Reason For Exam: lymphedema 02/15/22 08:54 Consult to Wound/ET Nurse [CONS] Routine Reason For Exam: wound eval 02/16/22 12:42 Consult to Physician [CONS] Routine Comment: Consulting Provider: JORGE RAMIREZ Physician Instructions: Reason For Exam: Cellulitis/infected wounds/positive cultures Primary care physician: GIBSON VAN Hospitalization Reason for admission: Worsening shortness of breath/bilateral lower lymphedema nonhealing ulcers Condition: Good Pertinent studies: Bilateral lower extremity CT scan: Severe bilateral lower leg skin thickening and subcutaneous soft tissue edema no soft tissue abscess or osteomyelitis Hospital course: 76 YO Male with HTN, DM, Metabolic Syndrome, Obesity Hypoventilation, BLE Lymphedema, Debility presents to ED for evaluation. Patient reports "I get tired really easily". Patient states that he had experienced decreased exercise tolerance, dyspnea on exertion, dyspnea at rest, worsening lower extremity edema, over the past 1 month with persistent and worsening symptoms over the past 1 week. Patient acknowledges orthopnea, as well as paroxysmal nocturnal dyspnea. Patient also acknowledges a 10 pound weight gain in the past 1 week. Patient was seen and evaluated by his primary care physician and instructed to seek further care. Patient transported to [facility] via private vehicle for further care and evaluation of the aforementioned symptoms. The patient was seen and evaluated in the emergency department. All lab and imaging studies reviewed. Patient found to have new onset atrial fibrillation with concomitant right bundle wang block, type II NSTEMI, as well as clinical symptoms consistent with new onset CHF. Patient also found to have bilateral lower extremity cellulitis with concomitant chronic bilateral lower extremity lymphedema. Patient admitted to telemetry and initiated on CHF protocol and treated with therapeutic anticoagulation in the emergency department. Cardiology team consulted. Patient denies fever, chills, chest pain, palpitations, productive cough, skin rash, recent ill contacts, or known exposure to COVID-19. No prior admission for review. No medication listed at time of admission has been reconciled. Advanced care planning conducted in ED. Patient was noted to have bilateral lymphedema chronic with chronic ulcers both legs, started on empiric antibiotics, wound care started managing the patient, cultures are positive, ID evaluated and medications optimized, however patient does not seem to improve Discharge diagnosis -- Bilateral lower extremity chronic lymphedema Wound care, elevate the limb supportive care. Occupational Therapy, lymphedema management --Bilateral lower leg cellulitis and chronic ulcers Empiric IV antibiotic therapy. Supportive care, wound care consulted. Surgery evaluation noted and appreciated --Wound cultures positive for; gram-negative rods/Pseudomonas Follow sensitivities, currently patient is on cefepime, status post Vanco Consult ID, --No evidence of congestive heart failure ; On echo LVEF is within normal limits, no fluid overload, proBNP within normal range No evidence of congestion on chest x-ray, patient does not have respiratory distress or shortness of breath Or any cardiac symptoms. Congestive heart failure ruled out -- Non-ST elevation SC: Due to troponine leak due to cellulitis Insignificant, troponin levels trended down --Right bundle branch block (RBBB) Telemetry monitoring, cardiology evaluated medical managem, --Obesity hypoventilation syndrome Balanced diet, increase physical activity discharge, outpatient pulmonary follow-up for sleep study. -- Bilateral lower extremity chronic lymphedema Wound care, elevate the limb supportive care. CT lower extremity, no osteomyelitis, no abscess soft tissue swelling --Hypertension Monitor blood pressure every shift, continue medical management. --Diabetes melitis Consistent carbohydrate diet, Accu-Chek, insulin protocol, hypoglycemia protocol. --DVT prophylaxis Supportive care, continue therapeutic anticoagulation. -- Advance care planning Disease education conducted, care plan discussed, diagnoses discussed, prognosis discussed, patient is full code, patient acknowledges understanding and agreement with care plan, +30 minutes. --Preventative health care Patient counseled regarding balanced diet, increase physical activity discharge, wound care and dressing care, low carbohydrate diet, low-sodium diet. +30 minutes. We will closely monitor the patient and adjust management as needed Plan of care reviewed with the patient and nurse Discharge planning; per case management Initially patient was very adamant to drive himself back home, however patient has Disposition: 06 HOME HEALTH CARE SERVICE Final Discharge Diagnosis (Prints w/discharge instructions): Bilateral lower extremity chronic lymphedema. Occupational Therapy/lymphedema management. Bilateral leg cellulitis with chronic ulcers/wound care. Wound cultures positive for gram-negative rods Pseudomonas received antibiotics ID recommended monitor of antibiotics. no evidence of congestive heart failure. Right bundle branch block. Obesity hypoventilation syndrome. Bilateral lower extremity chronic lymphedema. Hypertension. Diabetes mellitus. DVT prophylaxis. Advance care planning. Preventive healthcare Time spent for discharge: 40 minutes Core Measure Documentation - Palliative Care Palliative Care/ Comfort Measures: Not Applicable - Core Measures Any of the following diagnoses?: none Exam - Constitutional Vitals: Temp Pulse Resp BP Pulse Ox 98.4 F 78 18 140/78 98 02/18/22 11:58 02/18/22 11:58 02/18/22 11:58 02/18/22 11:58 02/18/22 11:58 General appearance: Present: no acute distress, well-nourished - EENT Eyes: Present: PERRL, EOM intact - Neck Neck: Present: supple, normal ROM - Respiratory Respiratory effort: normal Respiratory: bilateral: diminished, negative: rales, rhonchi, wheezing - Cardiovascular Rhythm: regular Heart Sounds: Present: S1 & S2 - Extremities Extremities: no ischemia Extremity abnormal: edema (Chronic lymphedema bilateral lower extremities), ulceration (Nonhealing ulcers infected), erythema - Abdominal General gastrointestinal: Present: soft, non-tender, non-distended, normal bowel sounds - Integumentary Integumentary: Present: clear, warm - Musculoskeletal Musculoskeletal: strength equal bilaterally, generalized weakness - Psychiatric Psychiatric: appropriate mood/affect, cooperative - Neurologic Neurologic: moves all extremities Plan Activity: advance as tolerated, no driving until cleared by PCP (Due to severe lymphedema and chronic infection and nonhealing ulcers and bulky dressing), fall precautions Diet: other (Cardiac diet) Wound: per wound nurse instructions Special Instructions: physical therapy (Outpatient), occupational therapy (Outpatient) Additional Instructions: If you have worsening symptoms contact MD or go to the emergency room as needed. Vies to follow primary care physician. Advised to follow surgeon. Advised to follow wound care Follow up with: GIBSON VAN MD [Primary Care Provider] - 7 Days JULIETTE ASHBY MD [Staff Physician] - 7 Days Prescriptions: Pantoprazole [Protonix TAB] 20 mg PO DAILY #20 SILVER sulfADIAZINE 50 GRAM [Thermazene 50 Gram] 1 applic TP BID #2 tube traMADoL [Ultram 50 MG tab] 50 mg PO Q8H PRN #20 tablet PRN Reason: Pain, Moderate (4-6) Ondansetron [Zofran Odt] 4 mg PO Q8HR #15 tab.lisedis
[2022-02-18 21:41] VITALS: BP 167/74
== END 2022-02-18 21:35 | disposition home health service (06) | DRG 602 ==
LOC: ED 08:11 → 4A 18:15
PROVIDERS: ADMIT Internal Medicine; ATTEND Internal Medicine
DX: L03.116 Cellulitis of left lower limb (principal); I21.A1 Myocardial infarction type 2; E66.2 Morbid (severe) obesity with alveolar hypoventilation; L97.929 Non-pressure chronic ulcer of unspecified part of left lower leg with unspecified severity; L97.919 Non-pressure chronic ulcer of unspecified part of right lower leg with unspecified severity; Z68.41 Body mass index [BMI] 40.0-44.9, adult; L03.115 Cellulitis of right lower limb; E11.9 Type 2 diabetes mellitus without complications; I89.0 Lymphedema, not elsewhere classified; B96.5 Pseudomonas (aeruginosa) (mallei) (pseudomallei) as the cause of diseases classified elsewhere; I10 Essential (primary) hypertension; I45.10 Unspecified right bundle-branch block; Z71.3 Dietary counseling and surveillance; Z83.3 Family history of diabetes mellitus; Z82.49 Family history of ischemic heart disease and other diseases of the circulatory system
CPT/HCPCS: 36415; 71046; 80048; 80053; 80061; 82962; 83735; 83880; 84443; 84484; 85025; 85610; 85730; 87076; 87116; 87186; 93005; 93306; 94640; 94760; 96372; 96374; 99285; G0378; C8929; J0692; J1650; J2405; J3370; J7050; Q9967

== ENCOUNTER 2022-03-08 08:58 | Outpatient (CLI) | payer MEDICARE ==
[2022-03-08] MEDS ORDERED: LIDOCAINE (4%) 40 MG/ML TOPICAL SOLN 50 ML BOTTLE TP ONE (09:11)
== END 2022-03-08 08:59 | disposition home or self-care (01) ==
LOC: WOUND 08:58
PROVIDERS: ATTEND Surgery
DX: I89.0 Lymphedema, not elsewhere classified (principal); I11.0 Hypertensive heart disease with heart failure; I50.9 Heart failure, unspecified; E11.39 Type 2 diabetes mellitus with other diabetic ophthalmic complication; H42 Glaucoma in diseases classified elsewhere; Z85.828 Personal history of other malignant neoplasm of skin; Z87.891 Personal history of nicotine dependence
CPT/HCPCS: 11042; 11045; G0463; 99204

== ENCOUNTER 2022-03-19 12:57 | Outpatient (CLI) | payer MEDICARE | END 2022-03-19 12:58 | disposition home or self-care (01) | LOC: WOUND 12:57 | PROVIDERS: ATTEND Surgery | DX: I89.0 Lymphedema, not elsewhere classified (principal); I11.0 Hypertensive heart disease with heart failure; I50.9 Heart failure, unspecified; E11.39 Type 2 diabetes mellitus with other diabetic ophthalmic complication; H42 Glaucoma in diseases classified elsewhere; Z85.828 Personal history of other malignant neoplasm of skin; Z87.891 Personal history of nicotine dependence | CPT/HCPCS: 29581; G0463; 99213 ==

== ENCOUNTER 2022-03-22 10:36 | Outpatient (CLI) | payer MEDICARE ==
[2022-03-22] MEDS ORDERED: LIDOCAINE (4%) 40 MG/ML TOPICAL SOLN 50 ML BOTTLE TP ONE (10:43)
== END 2022-03-22 10:37 | disposition home or self-care (01) ==
LOC: WOUND 10:36
PROVIDERS: ATTEND Surgery
DX: I89.0 Lymphedema, not elsewhere classified (principal); I11.0 Hypertensive heart disease with heart failure; I50.9 Heart failure, unspecified; E11.39 Type 2 diabetes mellitus with other diabetic ophthalmic complication; H42 Glaucoma in diseases classified elsewhere; Z85.828 Personal history of other malignant neoplasm of skin; Z87.891 Personal history of nicotine dependence

== ENCOUNTER 2022-03-29 11:00 | Outpatient (CLI) | payer MEDICARE | END 2022-03-29 11:01 | disposition home or self-care (01) | LOC: WOUND 11:00 | PROVIDERS: ATTEND Surgery | DX: I89.0 Lymphedema, not elsewhere classified (principal); E11.9 Type 2 diabetes mellitus without complications; I11.0 Hypertensive heart disease with heart failure; I50.9 Heart failure, unspecified; Z85.828 Personal history of other malignant neoplasm of skin; Z87.891 Personal history of nicotine dependence | CPT/HCPCS: 29581 ==

== ENCOUNTER 2022-04-05 10:38 | Outpatient (CLI) | payer MEDICARE ==
[2022-04-05] MEDS ORDERED: LIDOCAINE (4%) 40 MG/ML TOPICAL SOLN 50 ML BOTTLE TP ONE (11:10)
== END 2022-04-05 10:39 | disposition home or self-care (01) ==
LOC: WOUND 10:38
PROVIDERS: ATTEND Surgery
DX: I89.0 Lymphedema, not elsewhere classified (principal); E11.9 Type 2 diabetes mellitus without complications; I11.0 Hypertensive heart disease with heart failure; I50.9 Heart failure, unspecified; Z85.828 Personal history of other malignant neoplasm of skin; Z87.891 Personal history of nicotine dependence

== ENCOUNTER 2022-04-12 11:02 | Outpatient (CLI) | payer MEDICARE ==
[2022-04-12] MEDS ORDERED: LIDOCAINE (4%) 40 MG/ML TOPICAL SOLN 50 ML BOTTLE TP ONE (13:00)
== END 2022-04-12 11:03 | disposition home or self-care (01) ==
LOC: WOUND 11:02
PROVIDERS: ATTEND Surgery
DX: I89.0 Lymphedema, not elsewhere classified (principal); E11.9 Type 2 diabetes mellitus without complications; I11.0 Hypertensive heart disease with heart failure; I50.9 Heart failure, unspecified; Z85.828 Personal history of other malignant neoplasm of skin; Z87.891 Personal history of nicotine dependence
CPT/HCPCS: 29581

== ENCOUNTER 2022-04-26 08:44 | Outpatient (CLI) | payer MEDICARE ==
[2022-04-26] MEDS ORDERED: LIDOCAINE (4%) 40 MG/ML TOPICAL SOLN 50 ML BOTTLE TP ONE (08:55)
== END 2022-04-26 08:45 | disposition home or self-care (01) ==
LOC: WOUND 08:44
PROVIDERS: ATTEND Surgery
DX: I89.0 Lymphedema, not elsewhere classified (principal); E11.9 Type 2 diabetes mellitus without complications; I11.0 Hypertensive heart disease with heart failure; I50.9 Heart failure, unspecified; Z85.828 Personal history of other malignant neoplasm of skin; Z87.891 Personal history of nicotine dependence
CPT/HCPCS: 29581

== ENCOUNTER 2022-05-10 08:45 | Outpatient (CLI) | payer MEDICARE ==
[2022-05-10] MEDS ORDERED: LIDOCAINE (4%) 40 MG/ML TOPICAL SOLN 50 ML BOTTLE TP ONE (09:02)
== END 2022-05-10 08:46 | disposition home or self-care (01) ==
LOC: WOUND 08:45
PROVIDERS: ATTEND Surgery
DX: I89.0 Lymphedema, not elsewhere classified (principal); E11.9 Type 2 diabetes mellitus without complications; I11.0 Hypertensive heart disease with heart failure; I50.9 Heart failure, unspecified; Z85.828 Personal history of other malignant neoplasm of skin; Z87.891 Personal history of nicotine dependence

== ENCOUNTER 2022-05-24 08:46 | Outpatient (CLI) | payer MEDICARE | END 2022-05-24 08:47 | disposition home or self-care (01) | LOC: WOUND 08:46 | PROVIDERS: ATTEND Surgery | DX: I89.0 Lymphedema, not elsewhere classified (principal); I87.311 Chronic venous hypertension (idiopathic) with ulcer of right lower extremity; E11.622 Type 2 diabetes mellitus with other skin ulcer; L97.812 Non-pressure chronic ulcer of other part of right lower leg with fat layer exposed; I11.0 Hypertensive heart disease with heart failure; I50.9 Heart failure, unspecified; Z87.891 Personal history of nicotine dependence; Z85.828 Personal history of other malignant neoplasm of skin ==

== ENCOUNTER 2022-06-07 09:24 | Outpatient (CLI) | payer MEDICARE ==
[2022-06-07] MEDS ORDERED: LIDOCAINE (4%) 40 MG/ML TOPICAL SOLN 50 ML BOTTLE TP ONE (09:33)
== END 2022-06-07 09:25 | disposition home or self-care (01) ==
LOC: WOUND 09:24
PROVIDERS: ATTEND Surgery
DX: I89.0 Lymphedema, not elsewhere classified (principal); I87.311 Chronic venous hypertension (idiopathic) with ulcer of right lower extremity; E11.622 Type 2 diabetes mellitus with other skin ulcer; L97.812 Non-pressure chronic ulcer of other part of right lower leg with fat layer exposed; I11.0 Hypertensive heart disease with heart failure; I50.9 Heart failure, unspecified; Z87.891 Personal history of nicotine dependence; Z85.828 Personal history of other malignant neoplasm of skin

== ENCOUNTER 2022-06-14 09:44 | Outpatient (CLI) | payer MEDICARE, BC ==
[2022-06-14] MEDS ORDERED: LIDOCAINE (4%) 40 MG/ML TOPICAL SOLN 50 ML BOTTLE TP ONE (10:30)
== END 2022-06-14 09:45 | disposition home or self-care (01) ==
LOC: WOUND 09:44
PROVIDERS: ATTEND Surgery
DX: I89.0 Lymphedema, not elsewhere classified (principal); E11.9 Type 2 diabetes mellitus without complications; I11.0 Hypertensive heart disease with heart failure; I50.9 Heart failure, unspecified; Z85.828 Personal history of other malignant neoplasm of skin; Z87.891 Personal history of nicotine dependence

== ENCOUNTER 2022-06-21 09:18 | Outpatient (CLI) | payer MEDICARE, BC | END 2022-06-21 09:19 | disposition home or self-care (01) | LOC: WOUND 09:18 | PROVIDERS: ATTEND Surgery | DX: I89.0 Lymphedema, not elsewhere classified (principal); I87.331 Chronic venous hypertension (idiopathic) with ulcer and inflammation of right lower extremity; E11.621 Type 2 diabetes mellitus with foot ulcer; L97.512 Non-pressure chronic ulcer of other part of right foot with fat layer exposed; I11.0 Hypertensive heart disease with heart failure; I50.9 Heart failure, unspecified; Z87.891 Personal history of nicotine dependence; Z85.828 Personal history of other malignant neoplasm of skin ==

== ENCOUNTER 2022-06-28 09:14 | Outpatient (CLI) | payer MEDICARE, BC ==
[2022-06-28] MEDS ORDERED: LIDOCAINE (4%) 40 MG/ML TOPICAL SOLN 50 ML BOTTLE TP ONE (09:30)
== END 2022-06-28 09:15 | disposition home or self-care (01) ==
LOC: WOUND 09:14
PROVIDERS: ATTEND Surgery
DX: I89.0 Lymphedema, not elsewhere classified (principal); I11.0 Hypertensive heart disease with heart failure; I50.9 Heart failure, unspecified; Z87.891 Personal history of nicotine dependence; Z85.828 Personal history of other malignant neoplasm of skin; Z79.899 Other long term (current) drug therapy

== ENCOUNTER 2022-07-12 09:39 | Outpatient (CLI) | payer MEDICARE, BC | END 2022-07-12 09:40 | disposition home or self-care (01) | LOC: WOUND 09:39 | PROVIDERS: ATTEND Surgery | DX: I89.0 Lymphedema, not elsewhere classified (principal); E11.9 Type 2 diabetes mellitus without complications; I11.0 Hypertensive heart disease with heart failure; I50.9 Heart failure, unspecified; Z85.828 Personal history of other malignant neoplasm of skin; Z87.891 Personal history of nicotine dependence ==